=== PATIENT | female | born 1950 | race Caucasian/White ===

== ENCOUNTER 2018-11-06 11:31 | Inpatient (IN) | payer MEDICARE ==
[~2018-11-06] VITALS: Ht 160 cm; Wt 119.4 kg
[2018-11-06] MEDS: IPRATROPIUM BROMIDE 0.02% 2.5 ML NEB NEB SCH ×2 (01:45→19:00)
[2018-11-06] MEDS: ALBUTEROL SULF 0.083% NEB SOLN 3 ML NEB NEB SCH ×2 (01:45→19:00)
--- OUTSIDE RECORDS SUMMARY | 2018-11-06 11:33 | XMS REPORT ---
Author Author [facility] Address Unknown Phone Unavailable Care Team Providers Care Skip Hoist Operator Name Role Phone ALEKSANDRA LACKEYPONCHO CHRISTIANSON Unavailable Unavailable BRENDEN WESLEY Unavailable Unavailable Problems This patient has no known problems. Allergies, Adverse Reactions, Alerts This patient has no known allergies or adverse reactions. Medications This patient has no known medications. Results Test Description Test Time Test Comments Text Results Atomic Results Result Comments BASIC METABOLIC PANEL 2018-09-30 06:23:00 SODIUM (BEAKER) (test hebf=589) 139 meq/L 136-145 POTASSIUM (BEAKER) (test btii=704) 4.6 meq/L 3.5-5.1 Specimen slightly hemolyzed CHLORIDE (BEAKER) (test lakv=932) 110 meq/L 98-107 CO2 (BEAKER) (test rroy=861) 20 meq/L 22-29 BLOOD UREA NITROGEN (BEAKER) (test waye=163) 22 mg/dL 7-21 CREATININE (BEAKER) (test zvao=752) 1.06 mg/dL 0.57-1.25 Specimen slightly hemolyzed GLUCOSE RANDOM (BEAKER) (test xczj=745) 101 mg/dL 70-105 CALCIUM (BEAKER) (test wjhj=745) 8.4 mg/dL 8.4-10.2 EGFR (BEAKER) (test mhiu=7207) 52 mL/min/1.73 sq m ESTIMATED GFR IS NOT ACCURATE CREATININE CLEARANCE IN PREDICTING GLOMERULAR FILTRATION RATE. ESTIMATED GFR IS NOT APPLICABLE FOR DIALYSIS PATIENTS. CBC (HEMOGRAM ONLY)2018-09-30 06:00:00* Test Item Value Reference Range Comments WHITE BLOOD CELL COUNT (BEAKER) (test dywm=036) 8.3 K/ L 3.5-10.5 RED BLOOD CELL COUNT (BEAKER) (test fntx=706) 4.33 M/ L 3.93-5.22 HEMOGLOBIN (BEAKER) (test euyf=560) 12.0 GM/DL 11.2-15.7 HEMATOCRIT (BEAKER) (test whju=311) 42.6 % 34.1-44.9 MEAN CORPUSCULAR VOLUME (BEAKER) (test fjte=452) 98.4 fL 79.4-94.8 MEAN CORPUSCULAR HEMOGLOBIN (BEAKER) (test hvuj=816) 27.7 pg 25.6-32.2 MEAN CORPUSCULAR HEMOGLOBIN CONC (BEAKER) (test opyx=516) 28.2 GM/DL 32.2-35.5 RED CELL DISTRIBUTION WIDTH (BEAKER) (test soud=004) 17.5 % 11.7-14.4 PLATELET COUNT (BEAKER) (test evna=225) 157 K/CU MM 150-450 MEAN PLATELET VOLUME (BEAKER) (test wnvm=514) 10.7 fL 9.4-12.3 NUCLEATED RED BLOOD CELLS (BEAKER) (test wkck=345) 0 /100 WBC 0-0 [id number] 10:51:00* Test Item Value Reference Range Comments ACTIVATED CLOTTING TIME (BEAKER) (test xwqd=093) 274 sec TESTED AT [address] [address] [id number] 09:59:00* Test Item Value Reference Range Comments ACTIVATED CLOTTING TIME (BEAKER) (test igjf=333) 356 sec TESTED AT [address] [address] BASIC METABOLIC [id number] 13:40:00* Test Item Value Reference Range Comments SODIUM (BEAKER) (test wnis=627) 146 meq/L 136-145 POTASSIUM (BEAKER) (test cakn=686) 4.3 meq/L 3.5-5.1 CHLORIDE (BEAKER) (test zkxb=968) 109 meq/L 98-107 CO2 (BEAKER) (test dxyp=710) 26 meq/L 22-29 BLOOD UREA NITROGEN (BEAKER) (test vajv=815) 23 mg/dL 7-21 CREATININE (BEAKER) (test hwjw=876) 1.16 mg/dL 0.57-1.25 GLUCOSE RANDOM (BEAKER) (test hstv=896) 86 mg/dL 70-105 CALCIUM (BEAKER) (test wyau=910) 9.8 mg/dL 8.4-10.2 EGFR (BEAKER) (test qysn=5172) 47 mL/min/1.73 sq m ESTIMATED GFR IS NOT ACCURATE CREATININE CLEARANCE IN PREDICTING GLOMERULAR FILTRATION RATE. ESTIMATED GFR IS NOT APPLICABLE FOR DIALYSIS PATIENTS. CBC W/PLT COUNT & AUTO [id number] 13:29:00* Test Item Value Reference Range Comments WHITE BLOOD CELL COUNT (BEAKER) (test gcqb=913) 11.9 K/ L 3.5-10.5 RED BLOOD CELL COUNT (BEAKER) (test vbia=043) 4.87 M/ L 3.93-5.22 HEMOGLOBIN (BEAKER) (test mvgt=599) 13.6 GM/DL 11.2-15.7 HEMATOCRIT (BEAKER) (test ldcc=966) 44.0 % 34.1-44.9 MEAN CORPUSCULAR VOLUME (BEAKER) (test pddf=445) 90.3 fL 79.4-94.8 MEAN CORPUSCULAR HEMOGLOBIN (BEAKER) (test xfaq=635) 27.9 pg 25.6-32.2 MEAN CORPUSCULAR HEMOGLOBIN CONC (BEAKER) (test ksqk=259) 30.9 GM/DL 32.2-35.5 RED CELL DISTRIBUTION WIDTH (BEAKER) (test ujpd=611) 17.2 % 11.7-14.4 PLATELET COUNT (BEAKER) (test kyzr=840) 252 K/CU MM 150-450 MEAN PLATELET VOLUME (BEAKER) (test aipl=245) 11.0 fL 9.4-12.3 NUCLEATED RED BLOOD CELLS (BEAKER) (test izwd=876) 0 /100 WBC 0-0 NEUTROPHILS RELATIVE PERCENT (BEAKER) (test wmes=948) 69 % LYMPHOCYTES RELATIVE PERCENT (BEAKER) (test xpnp=735) 23 % MONOCYTES RELATIVE PERCENT (BEAKER) (test riwp=790) 4 % EOSINOPHILS RELATIVE PERCENT (BEAKER) (test onlm=236) 3 % BASOPHILS RELATIVE PERCENT (BEAKER) (test irbe=554) 1 % NEUTROPHILS ABSOLUTE COUNT (BEAKER) (test vuam=028) 8.17 K/ L 1.56-6.13 LYMPHOCYTES ABSOLUTE COUNT (BEAKER) (test hgsb=845) 2.70 K/ L 1.18-3.74 MONOCYTES ABSOLUTE COUNT (BEAKER) (test alpe=943) 0.48 K/ L 0.24-0.36 EOSINOPHILS ABSOLUTE COUNT (BEAKER) (test ryhq=214) 0.38 K/ L 0.04-0.36 BASOPHILS ABSOLUTE COUNT (BEAKER) (test qzuw=975) 0.08 K/ L 0.01-0.08 IMMATURE GRANULOCYTES-RELATIVE PERCENT (BEAKER) (test quwh=3051) 0 % 0-1 B-TYPE NATRIURETIC FACTOR (BNP)2018-08-01 13:14:00* Test Item Value Reference Range Comments B-TYPE NATRIURETIC PEPTIDE (BEAKER) (test wlbl=457) 61 pg/mL 0-100 LIPID [id number] 13:14:00* Test Item Value Reference Range Comments TRIGLYCERIDES (BEAKER) (test fjln=451) 132 mg/dL CHOLESTEROL (BEAKER) (test umdf=066) 237 mg/dL HDL CHOLESTEROL (BEAKER) (test yunp=607) 36 mg/dL LDL CHOLESTEROL CALCULATED (BEAKER) (test cigx=183) 175 mg/dL Triglyceride Reference Range: Low Risk <150 Borderline 150-199 High Risk 200-499 Very High Risk >=500Cholesterol Reference Range: Low Risk <200 Borderline 200-239 High Risk >240HDL Cholesterol Reference Range: Low Risk >=60 High Risk <40LDL Cholesterol Reference Range: Optimal <100 Near Optimal 100-129 Borderline 130-159 High 160-189 Very High >=190 COMPREHENSIVE METABOLIC [id number] 13:14:00* Test Item Value Reference Range Comments TOTAL PROTEIN (BEAKER) (test wbkz=061) 7.0 gm/dL 6.0-8.3 ALBUMIN (BEAKER) (test zakt=4113) 4.1 g/dL 3.5-5.0 ALKALINE PHOSPHATASE (BEAKER) (test gfay=682) 84 U/L 40-150 BILIRUBIN TOTAL (BEAKER) (test iqbw=827) 0.2 mg/dL 0.2-1.2 SODIUM (BEAKER) (test hhjg=710) 143 meq/L 136-145 POTASSIUM (BEAKER) (test apei=388) 4.5 meq/L 3.5-5.1 CHLORIDE (BEAKER) (test objo=219) 107 meq/L 98-107 CO2 (BEAKER) (test hsku=913) 28 meq/L 22-29 BLOOD UREA NITROGEN (BEAKER) (test yafq=703) 22 mg/dL 7-21 CREATININE (BEAKER) (test lplb=691) 1.19 mg/dL 0.57-1.25 GLUCOSE RANDOM (BEAKER) (test fpzz=813) 81 mg/dL 70-105 CALCIUM (BEAKER) (test ooor=509) 9.4 mg/dL 8.4-10.2 AST (SGOT) (BEAKER) (test ggxf=871) 17 U/L 5-34 ALT (SGPT) (BEAKER) (test cgvp=185) 11 U/L 6-55 EGFR (BEAKER) (test vqki=7166) 45 mL/min/1.73 sq m ESTIMATED GFR IS NOT ACCURATE CREATININE CLEARANCE IN PREDICTING GLOMERULAR FILTRATION RATE. ESTIMATED GFR IS NOT APPLICABLE FOR DIALYSIS PATIENTS. CBC W/PLT COUNT & AUTO [id number] 12:34:00* Test Item Value Reference Range Comments WHITE BLOOD CELL COUNT (BEAKER) (test fkpv=767) 9.9 K/ L 3.5-10.5 RED BLOOD CELL COUNT (BEAKER) (test casf=028) 5.06 M/ L 3.93-5.22 HEMOGLOBIN (BEAKER) (test hwmh=384) 13.7 GM/DL 11.2-15.7 HEMATOCRIT (BEAKER) (test fuuw=523) 45.3 % 34.1-44.9 MEAN CORPUSCULAR VOLUME (BEAKER) (test yufs=274) 89.5 fL 79.4-94.8 MEAN CORPUSCULAR HEMOGLOBIN (BEAKER) (test ljpo=642) 27.1 pg 25.6-32.2 MEAN CORPUSCULAR HEMOGLOBIN CONC (BEAKER) (test enjk=128) 30.2 GM/DL 32.2-35.5 RED CELL DISTRIBUTION WIDTH (BEAKER) (test jfqq=028) 16.8 % 11.7-14.4 PLATELET COUNT (BEAKER) (test axhq=267) 232 K/CU MM 150-450 MEAN PLATELET VOLUME (BEAKER) (test ekrm=188) 10.4 fL 9.4-12.3 NUCLEATED RED BLOOD CELLS (BEAKER) (test ijgj=263) 0 /100 WBC 0-0 NEUTROPHILS RELATIVE PERCENT (BEAKER) (test wtmo=192) 64 % LYMPHOCYTES RELATIVE PERCENT (BEAKER) (test dksh=071) 27 % MONOCYTES RELATIVE PERCENT (BEAKER) (test lawu=438) 5 % EOSINOPHILS RELATIVE PERCENT (BEAKER) (test hujk=204) 3 % BASOPHILS RELATIVE PERCENT (BEAKER) (test obvd=388) 1 % NEUTROPHILS ABSOLUTE COUNT (BEAKER) (test gizz=722) 6.34 K/ L 1.56-6.13 LYMPHOCYTES ABSOLUTE COUNT (BEAKER) (test xivf=047) 2.64 K/ L 1.18-3.74 MONOCYTES ABSOLUTE COUNT (BEAKER) (test qzmu=113) 0.46 K/ L 0.24-0.36 EOSINOPHILS ABSOLUTE COUNT (BEAKER) (test yqlz=764) 0.30 K/ L 0.04-0.36 BASOPHILS ABSOLUTE COUNT (BEAKER) (test lhbu=127) 0.08 K/ L 0.01-0.08 IMMATURE GRANULOCYTES-RELATIVE PERCENT (BEAKER) (test aqbx=2297) 0 % 0-1 FL, ESOPH, SWALLOW FUNCTION, WITH CINE OR [id number] 12:04:00Reason for Exam:->[id number] REPORT INDICATION: Dysphagia. TECHNIQUE: The patient was administered various consistencies of liquid and food mixed with barium. Swallowing was observed with the speech pathologist present. Fluoroscopy time 1.5 minutes.Fluoroscopic images 1 FINDINGS / IMPRESSION:There was laryngeal penetration on thin swallow. No aspiration demonstrated. Please see report written by the speech pathologist for detailed report and recommendations. Signed: Laura Gerardo MDReport Verified Date/Time: 07/26/2018 12:04:21 Reading Location: [facility] C013Y CT Body Reading Room
--- OUTSIDE RECORDS SUMMARY | 2018-11-06 11:33 | XMS REPORT | Clinical Summary ---
Author Author STU Minetta Brook Organization [facility] [employer] [facility] Address Unknown Phone Unavailable Care Team Providers Care Product Marketing Intern Name Role Phone Pcp, No PCP Unavailable Allergies Comments Active Allergy Reactions Severity Noted Date Pulls off skin Adhesive Tape 09/29/2018 Cat and Fur; pt got asthma Cat's Claw (Uncaria 09/28/2018 [place]) Coughing and wheezing Pollen Extracts 09/28/2018 Medications End Date Status Medication Sig Dispensed Refills Start Date Active losartan (COZAAR) 50 MG Take 50 mg by 0 tablet mouth 2 (two) times daily. Active atorvastatin (LIPITOR) 80 Take 80 mg by 0 MG tablet mouth daily. Active furosemide (LASIX) 40 MG Take 40 mg by 0 tablet mouth 2 (two) times daily 40 mg in AM; 40mg at NOON. Active aspirin 81 MG chewable Take 81 mg by 0 tablet mouth daily. Active nitroglycerin Place 1 spray 0 (NITROLINGUAL) 0.4 under the mg/dose spray tongue every 5 (five) minutes as needed. Active nebivolol (BYSTOLIC) 10 Take 20 mg by 0 MG tablet mouth daily. Active ranolazine (RANEXA) 500 Take 500 mg 0 MG 12 hr tablet by mouth 2 (two) times daily. Active budesonide-formoterol Inhale 2 0 (SYMBICORT) 160-4.5 puffs by mcg/actuation inhaler mouth via inhaler 2 (two) times daily. Active tiotropium bromide Inhale by 0 (SPIRIVA RESPIMAT) 2.5 mouth via mcg/actuation Mist inhaler daily. Active montelukast (SINGULAIR) Take 10 mg by 0 10 mg tablet mouth daily. Active ipratropium (ATROVENT) Take 500 mcg 0 0.02 % nebulizer solution by nebulization 4 (four) times daily. Active ticagrelor (BRILINTA) 90 Take 1 tablet 60 tablet 3 mg Tab tablet (90 mg total) 9 by mouth 2 (two) times daily. 09/30/2019 Active amLODIPine (NORVASC) 2.5 Take 1 tablet 90 tablet 2 201 MG tablet (2.5 mg 9 total) by mouth daily. 09/30/2018 Discontinued prasugrel (EFFIENT) 10 mg Take 10 mg by 0 Tab tabletIndications: mouth daily. PVD (peripheral vascular disease) with claudication (HCC) Active Problems Problem Noted Date Coronary atherosclerosis of [place] coronary artery 09/29/2018 Abnormal cardiac function test 09/29/2018 Angina pectoris, unstable 07/22/2015 Wound infection 04/18/2014 Wound of right leg, sequela 04/17/2014 Peripheral vascular disease 11/22/2013 Peripheral artery disease 11/08/2013 Coronary arteriosclerosis 05/05/2013 CAD (coronary artery disease) 04/19/2013 Encounters Care Team Description Date Type Specialty Chandu Piedra MD CORONARY ANGIOS & STENT 09/29/2018 Surgery Chandu Piedra MD 09/29/2018 Hospital Cardiology - Encounter 09/30/2018 Chandu Piedra MD Hypoventilation, idiopathic (Primary Dx); Atherosclerosis of [place] coronary artery with angina pectoris, unspecified whether [place] or transplanted heart (HCC) 09/12/2018 Orders Only Lab Onesimo Oconnell MD Atherosclerosis of [place] coronary artery with angina pectoris, unspecified whether [place] or transplanted heart (HCC) (Primary Dx); Hypoventilation, idiopathic; 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) 08/01/2018 Orders Only Lab Mika Bailey MD Dysphagia, unspecified type 07/26/2018 Hospital Radiology Encounter Mika Bailey MD Dysphagia, unspecified type (Primary Dx) 07/05/2018 Outside Orders Central Scheduling after 11/05/2017 Family History Medical History Relation Name Comments Hypertension Brother Hypertension Brother Heart disease Father Stroke Mother Hypertension Sister Relation Name Status Comments Brother Alive Brother Alive Father Mother Sister Alive Social History Date Tobacco Use Types Packs/Day Years Used Quit: 03/18/2013 Former Smoker 1 45 Smokeless Tobacco: Never Used Alcohol Use Drinks/Week oz/Week Comments No Sex Assigned at Date Recorded Not on file Industry Job Start Date Occupation Not on file Not on file Not on file Travel End Travel History Travel Start No recent travel history available. Last Filed Vital Signs Time Taken Vital Sign Reading 09/30/2018 7:00 AM CDT Blood Pressure 135/65 09/30/2018 9:11 AM CDT Pulse 64 09/30/2018 7:00 AM CDT Temperature 36.1 C (96.9 F) 09/30/2018 9:11 AM CDT Respiratory Rate 20 09/30/2018 9:11 AM CDT Oxygen Saturation 97% - Inhaled Oxygen - Concentration 09/30/2018 7:00 AM CDT Weight 122.1 kg (269 lb 1.6 oz) 09/29/2018 5:35 AM CDT Height 160 cm (5' 3") 09/30/2018 7:00 AM CDT Body Mass Index 47.67 Plan of Treatment Not on file Implants Device Identifier Shelf Expiration Date Model / Serial / Lot Implanted Type Area Manufactur er 05/18/2019 [id number] / / [id number] Device Clsr Angio-Seal Vip 6fr Cardiovasc Right: Groin [facility] [place] [id number] - [id number] ular MED:CARDIA Implanted: Qty: 1 on 09/29/2018 by Chandu Martinez MD 05/18/2017 [id number] / / [id number] Graft,Propaten Stretch Thin Wall Graft/Patc Right: Leg W L GORE Removable Ring 6mm [id number] - h [id number] Implanted: Qty: 1 on 01/03/2014 by Berto Wilkerson MD 04/24/2020 [id number] / / [id number] Synergy Otw Coronary Stent Stents-Cor N/A: Heart [place] Implanted: Qty: 1 on 09/29/2018 by Chandu Goodson MD Procedures Comments Procedure Name Priority Date/Time Associated Diagnosis VASCULAR DIAGRAM -SCAN 10/27/2018 1:54 PM CDT RHYTHM STRIP - SCAN 10/17/2018 1:52 PM CDT RHYTHM STRIP - SCAN 10/04/2018 7:30 AM CDT REPORT OF PROCEDURE - 10/04/2018 ENDOSCOPY SCAN 7:30 AM CDT CARDIAC CATH REPORT - 10/04/2018 SCAN 7:30 AM CDT VASCULAR DIAGRAM -SCAN 10/04/2018 7:30 AM CDT CBC (HEMOGRAM ONLY) Routine 09/30/2018 5:31 AM CDT BASIC METABOLIC PANEL (7) Routine 09/30/2018 5:31 AM CDT POCT-ACT Routine 09/29/2018 10:43 AM CDT POCT-ACT Routine 09/29/2018 9:48 AM CDT CORONARY ANGIOS & STENT 09/29/2018 Disease of cardiovascular 7:30 AM CDT system Case Notes (1) CASE POP6 CBC W/PLT COUNT & AUTO Routine 09/12/2018 Hypoventilation, DIFFERENTIAL 1:06 PM CRYPTOLOGIST idiopathic Atherosclerosis of [place] coronary artery with angina pectoris, unspecified whether [place] or transplanted heart (HCC) CBC W/PLT COUNT & AUTO Routine 09/12/2018 Hypoventilation, DIFFERENTIAL 1:06 PM CRYPTOLOGIST idiopathic Atherosclerosis of [place] coronary artery with angina pectoris, unspecified whether [place] or transplanted heart (HCC) BASIC METABOLIC PANEL (7) Routine 09/12/2018 Hypoventilation, 1:06 PM CRYPTOLOGIST idiopathic Atherosclerosis of [place] coronary artery with angina pectoris, unspecified whether [place] or transplanted heart (HCC) CBC W/PLT COUNT & AUTO Routine 08/01/2018 Atherosclerosis of [place] DIFFERENTIAL 11:51 AM CRYPTOLOGIST coronary artery with angina pectoris, unspecified whether [place] or transplanted heart (HCC) Hypoventilation, idiopathic 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) B-TYPE NATRIURETIC FACTOR Routine 08/01/2018 Atherosclerosis of [place] (BNP) 11:51 AM CRYPTOLOGIST coronary artery with angina pectoris, unspecified whether [place] or transplanted heart (HCC) Hypoventilation, idiopathic 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) CBC W/PLT COUNT & AUTO Routine 08/01/2018 Atherosclerosis of [place] DIFFERENTIAL 11:51 AM CRYPTOLOGIST coronary artery with angina pectoris, unspecified whether [place] or transplanted heart (HCC) Hypoventilation, idiopathic 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) COMPREHENSIVE METABOLIC Routine 08/01/2018 Atherosclerosis of [place] PANEL 11:51 AM CRYPTOLOGIST coronary artery with angina pectoris, unspecified whether [place] or transplanted heart (HCC) Hypoventilation, idiopathic 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 Narrative Performed At * RHYTHM STRIP - SCAN (10/17/2018 1:52 PM CDT) Only the most recent of 2 results within the time period is included. Narrative Performed At * EKG-SCANNED (10/04/2018 7:30 AM CDT) Narrative Performed At * CARDIAC CATH REPORT - SCAN (10/04/2018 7:30 AM CDT) Narrative Performed At * CBC (Hemogram only) (09/30/2018 5:31 AM CDT) WBC 8.3 3.5 - 10.5 K/L [facility] RBC 4.33 3.93 - 5.22 M/L [facility] Hemoglobin 12.0 11.2 - 15.7 GM/DL [facility] Hematocrit 42.6 34.1 - 44.9 % [facility] MCV 98.4 (H) 79.4 - 94.8 fL [facility] MCH 27.7 25.6 - 32.2 pg [facility] MCHC 28.2 (L) 32.2 - 35.5 GM/DL [facility] RDW 17.5 (H) 11.7 - 14.4 % [facility] Platelets 157 150 - 450 K/CU MM [facility] MPV 10.7 9.4 - 12.3 fL [facility] nRBC 0 0 - 0 /100 WBC [facility] Specimen Blood Performing Organization Address City/[facility]/Zipcode Phone Number [facility] [address] [place] [address] [facility] * Basic metabolic panel (09/30/2018 5:31 AM CDT) Only the most recent of 2 results within the time period is included. Sodium 139 136 - 145 meq/L [facility] Potassium 4.6Comment: Specimen slightly 3.5 - 5.1 meq/L [facility] Chloride 110 (H) 98 - 107 meq/L [facility] CO2 20 (L) 22 - 29 meq/L [facility] BUN 22 (H) 7 - 21 mg/dL [facility] Creatinine 1.06Comment: Specimen slightly 0.57 - 1.25 mg/dL [facility] Glucose 101 70 - 105 mg/dL [facility] Calcium 8.4 8.4 - 10.2 mg/dL [facility] EGFR 52Comment: ESTIMATED GFR IS mL/min/1.[address] [facility] NOT ACCURATE CREATININE [facility] CLEARANCE IN PREDICTING GLOMERULAR FILTRATION RATE. ESTIMATED GFR IS NOT APPLICABLE FOR DIALYSIS PATIENTS. Specimen Blood Performing Organization Address City/[facility]/Zipcode Phone Number [facility] [address] [place] [address] [facility] * POC ACTIVATED CLOTTING TIME (09/29/2018 10:43 AM CDT) Only the most recent of 2 results within the time period is included. Activated Clotting Time 274Comment: TESTED AT [facility] sec [address] [address] [facility] Specimen Blood Performing Organization Address City/State/Zipcode Phone Number [address] [address] [facility] * CBC with platelet count + automated diff (09/12/2018 1:06 PM CRYPTOLOGIST) Only the most recent of 2 results within the time period is included. WBC 11.9 (H) 3.5 - 10.5 K/L [facility] RBC 4.87 3.93 - 5.22 M/L [facility] Hemoglobin 13.6 11.2 - 15.7 GM/DL [facility] Hematocrit 44.0 34.1 - 44.9 % [facility] MCV 90.3 79.4 - 94.8 fL [facility] MCH 27.9 25.6 - 32.2 pg [facility] MCHC 30.9 (L) 32.2 - 35.5 GM/DL [facility] RDW 17.2 (H) 11.7 - 14.4 % [facility] Platelets 252 150 - 450 K/CU MM [facility] MPV 11.0 9.4 - 12.3 fL [facility] nRBC 0 0 - 0 /100 WBC [facility] % Neutros 69 % [facility] % Lymphs 23 % [facility] % Monos 4 % [facility] % Eos 3 % [facility] % Baso 1 % [facility] # Neutros 8.17 (H) 1.56 - 6.13 K/L [facility] # Lymphs 2.70 1.18 - 3.74 K/L [facility] # Monos 0.48 (H) 0.24 - 0.36 K/L [facility] # Eos 0.38 (H) 0.04 - 0.36 K/L [facility] # Baso 0.08 0.01 - 0.08 K/L [facility] Immature 0 0 - 1 % [facility] Granulocytes-Relative [facility] Specimen Blood Performing Organization Address City/[facility] Phone Number [address] * B-type Natriuretic Factor (BNP) (08/01/2018 11:51 AM CRYPTOLOGIST) BNP 61 0 - 100 pg/mL [facility] Specimen Blood Performing Organization Address City/[facility] Phone Number [address] * Lipid panel (08/01/2018 11:51 AM CRYPTOLOGIST) Triglycerides 132 mg/dL [facility] Cholesterol 237 mg/dL [facility] HDL 36 mg/dL [facility] LDL Calculated 175 mg/dL [facility] Specimen Blood Narrative Performed At Triglyceride Reference Range: [facility] Low Risk <150 [facility] [id number] High Risk 200-499 Very High Risk>=500 Cholesterol Reference Range: Low Risk <200 [id number] High Risk>240 HDL Cholesterol Reference Range: Low Risk >=60 High Risk <40 LDL Cholesterol Reference Range: Optimal<100 Near [id number] Very High >=190 Performing Organization Address City/[facility] [place] [address] [facility] * Comprehensive metabolic panel (08/01/2018 11:51 AM CRYPTOLOGIST) Protein, Total 7.0 6.0 - 8.3 gm/dL [facility] Albumin 4.1 3.5 - 5.0 g/dL [facility] Alkaline Phosphatase 84 40 - 150 U/L [facility] Total Bilirubin 0.2 0.2 - 1.2 mg/dL [facility] Sodium 143 136 - 145 meq/L [facility] Potassium 4.5 3.5 - 5.1 meq/L [facility] Chloride 107 98 - 107 meq/L [facility] CO2 28 22 - 29 meq/L [facility] BUN 22 (H) 7 - 21 mg/dL [facility] Creatinine 1.19 0.57 - 1.25 mg/dL [facility] Glucose 81 70 - 105 mg/dL [facility] Calcium 9.4 8.4 - 10.2 mg/dL [facility] AST 17 5 - 34 U/L [facility] ALT 11 6 - 55 U/L [facility] EGFR 45Comment: ESTIMATED GFR IS mL/min/1.[address] [facility] NOT ACCURATE CREATININE [facility] CLEARANCE IN PREDICTING GLOMERULAR FILTRATION RATE. ESTIMATED GFR IS NOT APPLICABLE FOR DIALYSIS PATIENTS. Specimen Blood Performing Organization Address City/State/Zipcode Phone Number [facility] [address], [place] [id number] [facility] * [place] esoph swallow funct with cine video (07/26/2018 9:48 AM CRYPTOLOGIST) Specimen Narrative Performed At [facility] INDICATION: Dysphagia. TECHNIQUE: The patient was administered various consistencies of liquid and food mixed with barium. Swallowing was observed with the speech pathologist present. Fluoroscopy time 1.5 minutes. Fluoroscopic images 1 FINDINGS / IMPRESSION: There was laryngeal penetration on thin swallow. No aspiration demonstrated. Please see report written by the speech pathologist for detailed report and recommendations. Signed: Laura Gerardo MD Report Verified Date/Time:07/26/2018 12:04:21 [place] Location: [facility] C013Y CT Body Reading Room Procedure Note Interface, External Ris In - 07/26/2018 12:06 PM CRYPTOLOGIST FINAL REPORT INDICATION: Dysphagia. TECHNIQUE: The patient was administered various consistencies of liquid and food mixed with barium. Swallowing was observed with the speech pathologist present. Fluoroscopy time 1.5 minutes. Fluoroscopic images 1 FINDINGS / IMPRESSION: There was laryngeal penetration on thin swallow. No aspiration demonstrated. Please see report written by the speech pathologist for detailed report and recommendations. Signed: aLura Gerardo MD Report Verified Date/Time: 07/26/2018 12:04:21 [place] Location: [facility] C013Y CT Body Reading Room Performing Organization Address City/State/Zipcode Phone Number RIS after 11/05/2017 Insurance Payer Benefit Subscriber ID Type Phone Address Plan / Group [facility] xxxxxxxxx MEDICARE MGD CARE MEDICARE HMO Advance Directives Patient has advance care planning documents, and code status on file. For more i nformation, please contact: [address] [address] Date Inactivated Comments Code Status Date Activated 09/30/2018 12:06 PM Full Code 09/29/2018 5:46 AM This code status was determined by: Patient 08/13/2015 11:21 PM Full Code 08/13/2015 7:50 AM This code status was determined by: Patient 07/22/2015 6:30 PM Full Code 07/22/2015 6:43 AM This code status was determined by: Patient 01/07/2014 4:22 PM All possible means of support, including: cardiac massage, mechanical ventilation, and defibrillation will be used to support life. Code ONE 01/03/2014 11:11 AM 01/03/2014 11:11 AM All possible means of support including;cardiac massage, mechanical ventilation, and defibrillation will be used to support life. Code ONE 01/03/2014 5:57 AM
[2018-11-06] MEDS ORDERED: METHYLPREDNISOLONE SOD SUCC 125 MG/2ML VIAL IV STA (11:41)
--- NOTE | 2018-11-06 11:44 | NUR ---
RT NOTIFIED FOR STAT NEB TREATMENT.
[2018-11-06] MEDS ORDERED: ASPIRIN 81 MG CHEW TAB PO ONE (11:45)
[2018-11-06] MEDS ORDERED: IPRATROPIUM BROMIDE 0.02% 2.5 ML NEB NEB ONE (11:45)
[2018-11-06] MEDS ORDERED: LEVALBUTEROL HCL SOLN NEBU 1.25 MG/3 ML NEB INH ONE (11:45)
[2018-11-06] MEDS ORDERED: MORPHINE SULFATE INJ 4 MG/ML INJ 1ML IV NR (11:45)
[2018-11-06 12:04] LABS: BASOPHILS # (AUTO) 0.1 (0.0-0.1); BASOPHILS % 0.4 % (0.0-1.0); EOSINOPHILS # (AUTO) 0.3 (0.0-0.4); EOSINOPHILS % 1.3 % (0.0-6.0); HEMATOCRIT 38.1 % (34.2-44.1); HEMOGLOBIN 11.6 g/dL (12.0-16.0); LYMPHOCYTES # (AUTO) 1.6 (1.0-3.2); LYMPHOCYTES % 8.5 % (18.0-39.1); MEAN CORPUSCULAR HEMOGLOBIN 27.8 pg (28-32); MEAN CORPUSCULAR HGB CONC 30.4 g/dL (31-35); MEAN CORPUSCULAR VOLUME 91.4 fL (81-99); MONOCYTES # (AUTO) 1.5 (0.2-0.8); MONOCYTES % 7.9 % (4.4-11.3); NEUTROPHILS # (AUTO) 15.5 (2.1-6.9); NEUTROPHILS % 81.4 % (38.7-80.0); PLATELET COUNT 288 x10e3/uL (140-360); RED BLOOD COUNT 4.17 x10e6/uL (3.6-5.1)
[2018-11-06 12:17] LABS: INR 1.1; PROTHROMBIN TIME 14.7 seconds (11.9-14.5)
[2018-11-06 12:18] LABS: PARTIAL THROMBOPLASTIN TIME 45.3 seconds (23.8-35.5)
[2018-11-06 12:25] LABS: ALBUMIN 3.2 g/dL (3.5-5.0); ALBUMIN/GLOBULIN RATIO 0.7 (0.8-2.0); ANION GAP 16.7 mmol/L (8-16); CALCIUM 9.7 mg/dL (8.4-10.2); CREATININE, SERUM 1.48 mg/dL (0.57-1.11); MAGNESIUM 2.6 MG/DL (1.3-2.1); POTASSIUM 3.7 mmol/L (3.5-5.1)
[2018-11-06] MEDS ORDERED: IPRATROPIUM BROMIDE 0.02% 2.5 ML NEB ONE (12:29)
[2018-11-06] MEDS ORDERED: LEVALBUTEROL HCL SOLN NEBU 1.25 MG/3 ML NEB ONE (12:29)
[2018-11-06 12:32] LABS: CREATINE KINASE MB 0.4 ng/mL (0-5.0)
--- NOTE | 2018-11-06 13:02 | Diagnostic Imaging Report ---
EXAMINATION: CHEST SINGLE (PORTABLE) INDICATION: COPD, cough, shortness of breath, chest pain. COMPARISON: None FINDINGS: TUBES and LINES: None. LUNGS: Low lung volumes. There are patchy opacities in the bilateral lower lung zones. PLEURA: No pleural effusion or pneumothorax. HEART AND MEDIASTINUM: The cardiomediastinal silhouette is mildly enlarged, which may reflect portable technique. BONES AND SOFT TISSUES: No acute osseous abnormality. UPPER ABDOMEN: No free air under the diaphragm. IMPRESSION: Patchy opacities in the lower lungs, which may represent pneumonia or atelectasis in the appropriate clinical setting. Suggest follow-up chest radiograph in 6-8 weeks to assess for resolution. Signed by: Dr. Sebastian Arellano MD on 11/06/2018 12:59 PM
--- OUTSIDE RECORDS SUMMARY | 2018-11-06 13:59 | XMS REPORT | Clinical Summary ---
Author Author STU Appcelerator Organization [facility] Girl Meets Dress [facility] Address Unknown Phone Unavailable Care Team Providers Care Intake Assessor Name Role Phone Pcp, No PCP Unavailable [...] Problems Problem Noted Date Coronary atherosclerosis of [place] coronary artery 09/29/2018 Abnormal cardiac function test [...] MD Hypoventilation, idiopathic (Primary Dx); Atherosclerosis of [place] coronary artery with angina pectoris, unspecified whether [place] or transplanted heart (HCC) 09/12/2018 Orders Only Lab Onesimo Oconnell MD Atherosclerosis of [place] coronary artery with angina pectoris, unspecified whether [place] or transplanted heart (HCC) (Primary Dx); Hypoventilation, [...] Lot Implanted Type Area Manufactur er 05/18/2019 [id number] / / [id number] Device Clsr Angio-Seal Vip 6fr Cardiovasc Right: Groin ST FLORENTINO [id number] - [id number] ular MED:CARDIA Implanted: Qty: 1 on 09/29/2018 by Chandu Martinez MD 05/18/2017 [id number] / / [id number] Graft,Propaten Stretch Thin Wall Graft/Patc Right: Leg W L GORE Removable Ring 6mm [id number] Implanted: Qty: 1 on 01/03/2014 by Berto Wilkerson MD 04/24/2020 [id number] / / [id number] Synergy Otw Coronary Stent Stents-Cor N/A: Heart [...] AUTO Routine 09/12/2018 Hypoventilation, DIFFERENTIAL 1:06 PM FOOD SERVICE SALES REPRESENTATIVES idiopathic Atherosclerosis of [place] coronary artery with angina pectoris, unspecified whether [place] or transplanted heart (HCC) CBC W/PLT COUNT & AUTO Routine 09/12/2018 Hypoventilation, DIFFERENTIAL 1:06 PM [employer] SERVICE SALES REPRESENTATIVES idiopathic Atherosclerosis of [place] coronary artery with angina pectoris, unspecified whether [place] or transplanted heart (HCC) BASIC METABOLIC PANEL (7) Routine 09/12/2018 Hypoventilation, 1:06 PM [employer] SERVICE SALES REPRESENTATIVES idiopathic Atherosclerosis of [place] coronary artery with angina pectoris, unspecified whether [place] or transplanted heart (HCC) CBC W/PLT COUNT & AUTO Routine 08/01/2018 Atherosclerosis of [place] DIFFERENTIAL 11:51 AM FOOD SERVICE SALES REPRESENTATIVES coronary artery with angina pectoris, unspecified whether [place] or transplanted heart (HCC) Hypoventilation, idiopathic 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) B-TYPE NATRIURETIC FACTOR Routine 08/01/2018 Atherosclerosis of [place] (BNP) 11:51 AM [employer] SERVICE SALES REPRESENTATIVES coronary artery with angina pectoris, unspecified whether [place] or transplanted heart (HCC) Hypoventilation, idiopathic 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) CBC W/PLT COUNT & AUTO Routine 08/01/2018 Atherosclerosis of [place] DIFFERENTIAL 11:51 AM FO[employer] SERVICE SALES REPRESENTATIVES coronary artery with angina pectoris, unspecified whether [place] or transplanted heart (HCC) Hypoventilation, idiopathic 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) COMPREHENSIVE METABOLIC Routine 08/01/2018 Atherosclerosis of [place] PANEL 11:51 AM FO[employer] SERVICE SALES REPRESENTATIVES coronary artery with angina pectoris, unspecified whether [place] or transplanted heart (HCC) Hypoventilation, idiopathic 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) LIPID PANEL Routine 08/01/2018 Atherosclerosis of [place] 11:51 AM FO[employer] SERVICE SALES REPRESENTATIVES coronary artery with angina pectoris, unspecified whether [place] or transplanted heart (HCC) Hypoventilation, idiopathic 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) XR ESOPH SWALLOW FUNCTION Routine 07/26/2018 Dysphagia, unspecified W/CINE VIDEO 9:48 AM [employer] SERVICE SALES REPRESENTATIVES type after 11/05/2017 Results * VASCULAR DIAGRAM [...] CDT) WBC 8.3 3.5 - 10.5 K/L [facility] RBC 4.33 3.93 - 5.22 M/L [facility] Hemoglobin 12.0 11.2 - 15.7 GM/DL [facility] Hematocrit 42.6 34.1 - 44.9 % [facility] MCV 98.4 (H) 79.4 - 94.8 fL [facility] MCH 27.7 25.6 - 32.2 pg [facility] MCHC 28.2 (L) 32.2 - 35.5 GM/DL [facility] RDW 17.5 (H) 11.7 - 14.4 % [facility] Platelets 157 150 - 450 K/CU MM [facility] MPV 10.7 9.4 - 12.3 fL [facility] nRBC 0 0 - 0 /100 WBC [facility] Specimen Blood Performing Organization Address City/[facility]/Zipcode Phone Number [facility] [address] [place] [address] [facility] * Basic metabolic panel (09/30/2018 5:31 AM CDT) Only the most recent of 2 results within the time period is included. Sodium 139 136 - 145 meq/L [facility] Potassium 4.6Comment: Specimen slightly 3.5 - 5.1 meq/L [facility] Chloride 110 (H) 98 - 107 meq/L [facility] CO2 20 (L) 22 - 29 meq/L [facility] BUN 22 (H) 7 - 21 mg/dL [facility] Creatinine 1.06Comment: Specimen slightly 0.57 - 1.25 mg/dL [facility] Glucose 101 70 - 105 mg/dL [facility] Calcium 8.4 8.4 - 10.2 mg/dL [facility] EGFR 52Comment: ESTIMATED GFR IS mL/min/1.73 sq m [facility] NOT ACCURATE CREATININE [facility] CLEARANCE IN PREDICTING GLOMERULAR FILTRATION RATE. ESTIMATED GFR IS NOT APPLICABLE FOR DIALYSIS PATIENTS. Specimen Blood Performing Organization Address City/[facility]/Zipcode Phone Number [facility] [address] [place] [address] [facility] * POC ACTIVATED CLOTTING TIME (09/29/2018 10:43 AM CDT) Only the most recent of 2 results within the time period is included. Activated Clotting Time 274Comment: TESTED AT [facility] sec [address] [facility] Specimen Blood Performing Organization Address City/State/Zipcode Phone Number [address] [address] [facility] * CBC with platelet count + automated diff (09/12/2018 1:06 PM [employer] SALES REPRESENTATIVES) Only the most recent of 2 results within the time period is included. WBC 11.9 (H) 3.5 - 10.5 K/L [facility] RBC 4.87 3.93 - 5.22 M/L [facility] Hemoglobin 13.6 11.2 - 15.7 GM/DL [facility] Hematocrit 44.0 34.1 - 44.9 % [facility] MCV 90.3 79.4 - 94.8 fL [facility] MCH 27.9 25.6 - 32.2 pg [facility] MCHC 30.9 (L) 32.2 - 35.5 GM/DL [facility] RDW 17.2 (H) 11.7 - 14.4 % [facility] Platelets 252 150 - 450 K/CU MM [facility] MPV 11.0 9.4 - 12.3 fL [facility] nRBC 0 0 - 0 /100 WBC [facility] % Neutros 69 % [facility] % Lymphs 23 % [facility] % Monos 4 % [facility] % Eos 3 % [facility] % Baso 1 % [facility] # Neutros 8.17 (H) 1.56 - 6.13 K/L [facility] # Lymphs 2.70 1.18 - 3.74 K/L [facility] # Monos 0.48 (H) 0.24 - 0.36 K/L [facility] # Eos 0.38 (H) 0.04 - 0.36 K/L [facility] # Baso 0.08 0.01 - 0.08 K/L [facility] Immature 0 0 - 1 % [facility] Granulocytes-Relative [facility] Specimen Blood Performing Organization Address City/[facility] Phone Number [address] * B-type Natriuretic Factor (BNP) (08/01/2018 11:51 AM FO[employer] SERVICE SALES REPRESENTATIVES) BNP 61 0 - 100 pg/mL [facility] Specimen Blood Performing Organization Address City/[facility] Phone Number [address] * Lipid panel (08/01/2018 11:51 AM [employer] SERVICE SALES REPRESENTATIVES) Triglycerides 132 mg/dL [facility] Cholesterol 237 mg/dL [facility] HDL 36 mg/dL [facility] LDL Calculated 175 mg/dL [facility] Specimen Blood Narrative Performed At Triglyceride Reference Range: [facility] Low Risk <[address] [facility] [id number] High Risk 200-499 Very High Risk>=500 Cholesterol Reference Range: Low Risk <200 [id number] High Risk>240 HDL Cholesterol Reference Range: Low Risk >=60 High Risk <40 LDL Cholesterol Reference Range: Optimal<100 Near [id number] Very High >=190 Performing Organization Address City/[facility] [place] [address] [facility] * Comprehensive metabolic panel (08/01/2018 11:51 AM FO[employer] SERVICE SALES REPRESENTATIVES) Protein, Total 7.0 6.0 - 8.3 gm/dL [facility] Albumin 4.1 3.5 - 5.0 g/dL [facility] Alkaline Phosphatase 84 40 - 150 U/L [facility] Total Bilirubin 0.2 0.2 - 1.2 mg/dL [facility] Sodium 143 136 - 145 meq/L [facility] Potassium 4.5 3.5 - 5.1 meq/L [facility] Chloride 107 98 - 107 meq/L [facility] CO2 28 22 - 29 meq/L [facility] BUN 22 (H) 7 - 21 mg/dL [facility] Creatinine 1.19 0.57 - 1.25 mg/dL [facility] Glucose 81 70 - 105 mg/dL [facility] Calcium 9.4 8.4 - 10.2 mg/dL [facility] AST 17 5 - 34 U/L [facility] ALT 11 6 - 55 U/L [facility] EGFR 45Comment: ESTIMATED GFR IS mL/min/1.73 sq m [facility] NOT ACCURATE CREATININE [facility] CLEARANCE IN PREDICTING GLOMERULAR FILTRATION RATE. ESTIMATED GFR IS NOT APPLICABLE FOR DIALYSIS PATIENTS. Specimen Blood Performing Organization Address City/State/Zipcode Phone Number [facility] [address] [place], [place] [id number] [facility] * [place] esoph swallow funct with cine video (07/26/2018 9:48 AM FO[employer] SERVICE SALES REPRESENTATIVES) Specimen Narrative Performed At FINAL REPORT [facility] INDICATION: Dysphagia. TECHNIQUE: The patient was administered [...] MD Report Verified Date/Time:07/26/2018 12:04:21 Reading Location: [facility] C013Y CT Body Reading Room Procedure Note Interface, External Ris In - 07/26/2018 12:06 PM FO[employer] SERVICE SALES REPRESENTATIVES FINAL REPORT INDICATION: Dysphagia. TECHNIQUE: The patient [...] recommendations. Signed: Laura Gerardo MD Report Verified Date/Time: 07/26/2018 12:04:21 Reading Location: [facility] C013Y CT Body Reading Room Performing Organization Address City/State/Zipcode Phone Number RIS after 11/05/2017 Insurance Payer Benefit Subscriber ID Type Phone Address Plan / Group [facility] xxxxxxxxx MEDICARE MGD CARE MEDICARE HMO Advance Directives Patient has advance care planning documents, and code status on file. For more i nformation, please contact: [address] [address] Date Inactivated Comments Code Status [...]
[2018-11-06] MEDS ORDERED: SODIUM CHLORIDE 0.9% 250ML 250 ML ONE (14:22)
[2018-11-06] MEDS: NICOTINE 21 MG/EA PATCH TOP SCH (14:37)
[2018-11-06] MEDS: CEFTRIAXONE SOD 1 GM/NS 50 ML 50 ML IV SCH (14:37)
[2018-11-06 15:01] LABS: CLARITY,URINE HAZY (CLEAR); COLOR,URINE YELLOW (YELLOW)
[2018-11-06] MEDS: AZITHROMYCIN 500MG/NS 250 ML 250 ML IV SCH (15:01)
[2018-11-06 15:02] LABS: LEUKOCYTE ESTERASE ,URINE NEGATIVE (NEGATIVE); NITRITE,URINE NEGATIVE (NEGATIVE); PROTEIN,URINE DIPSTICK TRACE (NEGATIVE)
[2018-11-06 15:18] LABS: KETONES,URINE NEGATIVE (NEGATIVE)
[2018-11-06 15:19] LABS: AMORPHOUS SEDIMENT,URINE FEW (FEW); BACTERIA,URINE MANY /HPF; BILIRUBIN,URINE NEGATIVE (NEGATIVE); EPITHELIAL CELLS,URINE MODERATE /LPF; MUCUS,URINE FEW (RARE); URINE UROBILINOGEN 0.2 mg/dL (0.2 - 1); WBC,URINE (MAN) 0-5 /HPF (0-5)
[2018-11-06] MEDS ORDERED: SYMBICORT 16010.2 GM INH (15:32)
[2018-11-06] MEDS ORDERED: SPIRIVA18 MCG INH (15:32)
[2018-11-06] MEDS ORDERED: AMLODIPINE BES2.5 MG PO (15:32)
[2018-11-06] MEDS ORDERED: BYSTOLIC10 MG PO (15:32)
[2018-11-06] MEDS ORDERED: LOSARTAN POTASS25 MG PO (15:32)
[2018-11-06] MEDS ORDERED: AMLODIPINE BESYL5 MG PO (15:32)
[2018-11-06] MEDS ORDERED: IPRATROPIU0.2 MG/1 M INH (15:32)
[2018-11-06] MEDS ORDERED: ATORVASTATIN CA80 MG PO (15:32)
[2018-11-06] MEDS ORDERED: FUROSEMIDE20 MG PO (15:32)
[2018-11-06] MEDS ORDERED: BRILINTA90 MG PO (15:32)
[2018-11-06] MEDS ORDERED: LOW DOSE ASPIRI81 MG PO (15:32)
[2018-11-06 16:36] LABS: ABG HCO3 23 mmol/L (23-28); ABG PCO2 36 mmHg (41-51); ABG PO2 85 mmHg (80-105)
[2018-11-06 17:55] VITALS: BP 143/63
[2018-11-06 17:56] VITALS: BP 143/63
[2018-11-06 17:58] VITALS: BP 143/63
--- NOTE | 2018-11-06 19:00 | NUR ---
Report received from AM RN Mary Ann. Patient received resting on her bed. Patient's at the bedside. Denied pain and no SOB. Patient continued on 2liters oxygen via nasal canula. Bed in lower position,locked. Call zhang within reach. Patient instructed call for help as needed. Will continue to monitor.
[2018-11-06 19:18] VITALS: BP 134/65
[2018-11-06 19:46] VITALS: BP 134/65
[2018-11-06 20:42] LABS: CREATINE KINASE MB 0.4 ng/mL (0-5.0)
[2018-11-06 21:00] VITALS: BP 134/65
[2018-11-07] VITALS (10 sets, daily range): BP systolic 112–140; BP diastolic 55–78
[2018-11-07] MEDS ORDERED: SODIUM CHLORIDE 0.9% 250ML 250 ML ONE (01:05)
[2018-11-07] MEDS: CEFTRIAXONE SOD 1 GM/NS 50 ML 50 ML IV SCH ×2 (01:25→14:40)
[2018-11-07] MEDS: IPRATROPIUM BROMIDE 0.02% 2.5 ML NEB NEB SCH (03:00)
[2018-11-07] MEDS: ALBUTEROL SULF 0.083% NEB SOLN 3 ML NEB NEB SCH ×5 (03:00→19:35)
[2018-11-07 05:48] LABS: BASOPHILS % 0.1 % (0.0-1.0); HEMATOCRIT 34.3 % (34.2-44.1); HEMOGLOBIN 10.5 g/dL (12.0-16.0); LYMPHOCYTES # (AUTO) 1.1 (1.0-3.2); LYMPHOCYTES % 5.7 % (18.0-39.1); MEAN CORPUSCULAR HEMOGLOBIN 28.1 pg (28-32); MEAN CORPUSCULAR HGB CONC 30.6 g/dL (31-35); MEAN CORPUSCULAR VOLUME 91.7 fL (81-99); MONOCYTES # (AUTO) 0.3 (0.2-0.8); MONOCYTES % 1.4 % (4.4-11.3); NEUTROPHILS % 92.2 % (38.7-80.0); PLATELET COUNT 238 x10e3/uL (140-360); RED BLOOD COUNT 3.74 x10e6/uL (3.6-5.1); RED CELL DISTRIBUTION WIDTH 16.9 % (11.7-14.4)
[2018-11-07 06:19] LABS: CREATINE KINASE 34 IU/L (29-168)
[2018-11-07 06:51] LABS: ALBUMIN 2.8 g/dL (3.5-5.0); ALBUMIN/GLOBULIN RATIO 0.7 (0.8-2.0); CALCIUM 9.5 mg/dL (8.4-10.2); CREATININE, SERUM 1.34 mg/dL (0.57-1.11)
[2018-11-07] MEDS: IPRATROPIUM BROMIDE 0.02% 2.5 ML NEB INH SCH ×4 (07:00→19:35)
--- NOTE | 2018-11-07 08:00 | NUR ---
Patient alert and responsive, VSS, denies N/V, fever and chills Head: Atraumatic, normocephalic EENT: Congestion/inflamed nasal passage but clear/ no obstruction, no drainage, throat patent Cardiac: RRR, S1, S2 Normal, no S3, S4. Resp: LS with scattered bilateral wheezing, RR uneven, some dyspnea Abd: BS dim, abd round, Soft, Non-distended, non tender. Extremities: DP pulse faint +1 and posterior tibialis pulse faint +1 Skin: Warm, moist, no lesions, no wounds : Unremarkable, Rounds by attending and reviewed plan of care with patient. Continues on Tele, pulse ox, [id number]% on 3L NC, neb treatments requested at this time due to SOB. Call light within reach, will monitor.
[2018-11-07] MEDS ORDERED: NON-FORMULARY MEDICATION (Aspirin (Low Dose Aspirin Ec) 81 MG) PO SCH (09:00)
[2018-11-07] MEDS ORDERED: FUROSEMIDE 20 MG TAB PO SCH (09:00)
[2018-11-07] MEDS ORDERED: NON-FORMULARY MEDICATION (Atorvastatin Calcium 80 MG) PO SCH (09:00)
[2018-11-07] MEDS: NEBIVOLOL 10 MG TAB PO SCH ×2 (09:09→17:00)
[2018-11-07] MEDS: METHYLPREDNISOLONE SOD SUCC 40 MG/ML VIAL 1ML IV SCH ×2 (09:09→20:34)
[2018-11-07] MEDS: FUROSEMIDE 40 MG TAB PO SCH ×2 (09:09→17:00)
[2018-11-07] MEDS: AMLODIPINE BESYLATE 5 MG TAB PO SCH (09:09)
[2018-11-07] MEDS: TICAGRELOR 90 MG TABLET PO SCH ×2 (09:09→17:00)
[2018-11-07] MEDS: LOSARTAN POTASSIUM 25 MG TAB PO SCH ×2 (09:09→17:00)
[2018-11-07] MEDS: AZITHROMYCIN 500MG/NS 250 ML 250 ML IV SCH (09:09)
--- NOTE | 2018-11-07 09:10 | NUR ---
Consults to Dr. Root and Dr. Roberts and consults called in at this time
[2018-11-07] MEDS: BUDESONIDE/FORMOTEROL 160/4.5MCG INHALER INH SCH ×2 (10:45→19:00)
[2018-11-07] MEDS: TIOTROPIUM 18 MCG INH POWDER INH SCH (10:45)
--- NOTE | 2018-11-07 11:39 | NUR ---
Corrected consult from Dr. Eric Ly to Dr. Osiel Ly, sales project engineer who is here at this time to see patient.
--- NOTE | 2018-11-07 12:01 | NUR ---
Patient alert and responsive, assisted OOB to bathroom, VSS and off O2, SPO2 at 98% RA and desats to 95% with ambulation, some wheezing and mild dyspnea as ambulates, uses cane. Rounds by rewards consultant and orders patient may participate in activities, OOB to chair and ambulate and wean off oxygen, will monitor.
--- NOTE | 2018-11-07 13:44 | History and Physical ---
CHIEF COMPLAINT: Shortness of breath, chest pain. HISTORY OF PRESENT ILLNESS: A 68-year-old female, morbidly obese with known history of COPD, chronic smoker, also history of hypertension and hyperlipidemia, presents to the ED with complaints of substernal chest pain on the right lower aspect of the chest. She reports that this chest pain began yesterday morning suddenly when she was at home. She describes it more as a pressure like with no radiation anywhere. No nausea, no vomiting associated with it. She does [facility]. Also endorses some shortness of breath with underlying wheezing, coughing, congestion. She reports that she does take inhalers and does see a reliability technologist in [facility]. The patient is seen and evaluated at bedside on the medical floor. She is currently stable, has no other complaints at this time. Her chest pain is much improved. She does have wheezing on examination. Otherwise, no other issues at this time. REVIEW OF SYSTEMS: Pertinent positives: Shortness of breath, cough, congestion, wheezing, chest pain. Pertinent negatives: Denies any palpitation, nausea, vomiting, diarrhea, dysuria, hematuria, frequency, urgency, lightheadedness, dizziness, abdominal pain, headaches, fever or any other complaints. The rest of 14-point review of systems have been reviewed with the patient and are negative. ALLERGIES: NO KNOWN DRUG ALLERGIES. HOME MEDICATIONS: Amlodipine 5 mg daily. She takes Symbicort two puffs inhaled b.i.d., furosemide 40 mg daily, losartan 25 mg p.o. b.i.d., Bystolic 10 mg p.o. b.i.d., Brilinta 90 mg b.i.d., Spiriva inhaled daily, aspirin 81 mg daily, and Lipitor 80 mg daily. PAST MEDICAL HISTORY: COPD, CAD, hyperlipidemia, hypertension, morbid obesity. PAST SURGICAL HISTORY: Reports none. FAMILY HISTORY: Hypertension and diabetes. SOCIAL HISTORY: No drugs. No alcohol. She does smoke and she continues to smoke. She is on 2 L nasal cannula home oxygen. PHYSICAL EXAMINATION: VITAL SIGNS: Temperature 97.9, pulse 77, respiratory rate 17, blood pressure 121/71, pulse ox 97% on 2 L nasal cannula. GENERAL: Not in acute distress. Alert and oriented x3. Cooperative on examination. HEENT: Head is normocephalic and atraumatic. Eyes; pupils are equal, round, and reactive to light bilaterally. Extraocular movements are intact bilaterally. Throat, no evidence of erythema or exudates in the posterior pharynx. Has poor dentition. NECK: Supple. Good range of motion. PULMONARY: She has expiratory wheezing appreciated. There are fine rales. No rhonchi. Inspiratory effort is good. CARDIOVASCULAR: Positive S1, S2. No murmurs, rubs, or gallops appreciated. ABDOMEN: Soft, nondistended, and nontender to palpation. Bowel sounds present. MUSCULOSKELETAL: Strength is 5/5 throughout. No evidence of any muscle deficits on examination. No weakness appreciated. NEUROLOGICAL: Cranial nerves 2 through 12 grossly intact. No evidence of any neurological deficits on exam. SKIN: Intact. Warm to touch. Good cap refill. PSYCHIATRIC: Normal affect and mood. EXTREMITIES: No edema. Good range of motion throughout. LAB FINDINGS: Show white count is 19.5, hemoglobin 10.5, hematocrit is 34.3, platelets of 238. Coagulation; PT 14.7, INR 1.1, and PTT 45. Chemistry; sodium 142, potassium 4, chloride 107, bicarb 24, anion gap of 16, BUN is 28, creatinine is 1.3, glucose 136, calcium is 9.5. LFTs were normal. Troponins were negative. Albumin 2.8. Urinalysis negative. Urine and blood cultures were pending. IMAGING STUDIES: Chest x-ray shows some patchy opacities in the left lower base, may represent pneumonia or atelectasis in the appropriate clinical setting. IMPRESSION: 1. Chronic obstructive pulmonary disease exacerbation. 2. Community-acquired pneumonia. 3. Hypertension. 4. Chest pain likely atypical in nature with history of coronary artery disease in the past, on antiplatelet therapy. PLAN: At this time, in relation to the COPD, we have started her on steroids, neb treatments, and antibiotics and resume same inhalers at home. Get Pulmonary consultation as well. The patient is already on home O2 2 L continuously. Continue with IV antibiotics for community-acquired pneumonia with azithromycin and Rocephin. Blood cultures are pending as well as urine cultures. In relation to her chest pain, likely atypical in nature, but we will get Cardiology to evaluate her due to her cardiac history in the past. Resume same cardioprotective medications at home. Continue same home antihypertensive medications, p.r.n. hydralazine. Lovenox for DVT prophylaxis. The patient is currently stable with no other issues. All questions were answered with the patient with the nurse available at bedside. MD JENNIFER Chan/MODL /[id number]
[2018-11-07] MEDS: NICOTINE 21 MG/EA PATCH TOP SCH (13:45)
--- NOTE | 2018-11-07 15:42 | Diagnostic Imaging Report ---
EXAMINATION: PA and lateral views of the chest. COMPARISON: Single view chest 11/06/2018 CLINICAL HISTORY: Wheezing, right-sided pleurisy DISCUSSION: There is patchy consolidation in the right lung base, likely the middle lobe. No additional airspace consolidation. Lateral radiograph shows no pleural effusion. No pneumothorax. Tortuous thoracic aorta with atherosclerotic calcification. Borderline enlargement of the cardiac silhouette without overt pulmonary edema. No acute osseous abnormality. IMPRESSION: Patchy right middle lobe consolidation compatible with pneumonia in the correct clinical setting. Follow-up chest radiograph in 6-8 weeks is suggested to document resolution. Borderline cardiomegaly without pulmonary edema. Signed by: Dr. Berto Bravo M.D. on 11/07/2018 3:39 PM
--- NOTE | 2018-11-07 16:53 | NUR ---
Rounds by Dr. Barlow, cardiology and orders for Echo and state patient is cleared from his end and is cleared from cardiac standpoint.
[2018-11-07] MEDS: ENOXAPARIN SOD INJ 40 MG/0.4 ML SYR SC SCH (17:00)
--- NOTE | 2018-11-07 18:21 | Consultation ---
DATE OF CONSULTATION: 11/07/2018 Pulmonary Consultation HISTORY OF PRESENT ILLNESS: Ms. Barfield is a 68-year-old white woman with multiple medical problems, who presented yesterday to the hospital with right-sided chest pain that was sharp, worse with breathing. Originally, thought she was having pneumonia because she had chest pain, with previous heart attack. She has since started with cough, is unable to expectorate sputum, but denies fevers, chills, night sweats, nausea and vomiting. The pain she says is located under her right breast. She denies any rash, nausea, vomiting, diarrhea, lightheadedness or dizziness. She does admit to having lower extremity edema that has been going on for a while. She uses oxygen at home 2 liters. She was recently in the hospital, found to have what sounds like a right pleural effusion in evaluation and dealing with replacement or new coronary artery stent and stents for the lower extremities. PAST MEDICAL HISTORY: Includes COPD/emphysema. She is on home oxygen at 2 liters, coronary artery disease, status post DE and stent, congestive heart failure, pleural effusion, peripheral arterial disease with lower extremity bypass. PAST SURGICAL HISTORY: Includes left heart cath, stents, lower extremity angioplasty and right lower extremity bypass. OUTPATIENT MEDICATIONS: Reviewed. She takes Xopenex, aspirin, Atrovent. Current medications include other nebulized bronchodilators as well as Rocephin, azithromycin, Solu-Medrol and oral Lasix. ALLERGIES: NONE. SOCIAL HISTORY: She used to smoke a pack-a-day, but now she is down to 1 cigarette in the morning with her coffee. No drugs. No alcohol. She is . She ambulates with a cane. FAMILY HISTORY: Noncontributory. REVIEW OF SYSTEMS: Noncontributory except as noted above. PHYSICAL EXAMINATION: VITAL SIGNS: She has been afebrile since presentation around 98.1-98.4 degrees. Heart rate has been in the 70s. Respiratory rate has been 12 to 19, blood pressure 138/78 most recently. Currently, she is 98% to 100% on room air after coming back from the bathroom. GENERAL APPEARANCE: This is an obese appearing woman. Her BMI is 46.1. HEENT: Her head is normocephalic. Mucous membranes are moist. NECK: Short and thick. CHEST: Has diffuse wheezes bilaterally. HEART: Has regular rate and rhythm without murmurs, rubs or gallops. ABDOMEN: Obese, soft, nontender. EXTREMITIES: Have 1 to 2+ pitting edema. IMAGING DATA: Her chest x-ray shows cardiomegaly with hazy opacity at the right base. LABORATORY DATA: Micro so far is unremarkable. Electrolytes were unremarkable. When she came in her creatinine was 1.48, it is down to 1.34. LFTs were within normal limits. She had 3 sets of negative cardiac enzymes. B natriuretic peptide is 184. Her albumin is 3.2. Urinalysis has many bacteria with moderate urine epithelial cells sediment. Coags were normal. White count was 19, hemoglobin and hematocrit were 11 and 38 at admission with 288,000 platelets. She has a left shift. ABG appears 7.40, PCO2 of 36, PO2 of 85 on 2 liters. ASSESSMENT: 1. Right lower lobe pneumonia. 2. Pleurisy. 3. Chronic obstructive pulmonary disease with acute exacerbation. 4. Congestive heart failure not specified at this time. 5. Coronary artery disease. 6. Peripheral arterial disease. 7. Chronic kidney disease. 8. Nicotine dependance for cigarettes. RECOMMENDATIONS AND PLAN: Continue the broad-spectrum antibiotics. Clinically, she appears to be improving in my discussion with the nurse. Continue the nebulized bronchodilators and steroids. Continue DVT prophylaxis. I will obtain a followup two view chest x-ray depending on the findings we may need to do a CT. Continue with diuretics. Follow up with BMP. She may need to increase her Lasix given her edema. Further recommendations per findings. MD WONG Burroughs/JULIETH /[id number] JACKIE
--- NOTE | 2018-11-07 20:32 | Consultation ---
DATE OF CONSULTATION: 11/07/2018 REASON FOR CONSULTATION: Chest pain. HISTORY OF PRESENT ILLNESS: Ms. Barfield is a 68-year-old female with past medical history of hypertension; hypercholesteremia; coronary artery disease with prior history of myocardial infarction in 2012; CAD with stenting most recently with Dr. Vega in September 29, 2018; PAD with prior history of left lower extremity stent and has a previous history of right femoral-popliteal bypass with Dr. Tobin in the past; COPD, on home oxygen with intermittent compliance; and tobacco dependence, smokes one pack per day. The patient presents to this institution with several days of chills, coughing is minimally productive and having right-sided chest pain underneath her right breast region, exacerbated by coughing and taking a deep breath in, and has some radiation around the side to her back. The patient was worried that this could be her heart. She maintains compliance with her anti-platelet therapy of aspirin and Brilinta, and again her last heart catheterization was just over a month ago where she had revascularization done at that time. PAST MEDICAL HISTORY: 1. Hypertension, essential. 2. COPD, on home oxygen. 3. CHF, unclear details. 4. CAD with prior history of myocardial infarction in 2012 and multiple stents, most recently in September 29, 2018. 5. Peripheral artery disease with claudication with history of right lower extremity bypass with Dr. Tobin and left lower extremity stenting by Dr. Vega. FAMILY HISTORY: Mother at 83 with a heart attack. Father at the age of 40 with a heart attack. SOCIAL HISTORY: She is a one [id number] smoker. Denies any alcohol or illicit drug use. ALLERGIES: NO KNOWN DRUG ALLERGIES. HOME MEDICATIONS: Include aspirin 81 mg daily, Brilinta 90 mg b.i.d., Norvasc 2.5 mg b.i.d., atorvastatin 80 mg daily, Symbicort 160/4.5 two puffs inhaled b.i.d., Lasix 40 mg b.i.d., ipratropium inhaled q.6 h., losartan 25 mg b.i.d., and Bystolic 10 mg b.i.d. REVIEW OF SYSTEMS: GENERAL: Positive for chills. Denies any fevers. No weight changes. HEENT: No headaches, visual complaints, sore throat, or stuffy nose. RESPIRATORY: Positive for wheezing. Positive for pleuritic chest pain as per above, shortness of breath, as well as a cough that is mildly productive. CARDIOVASCULAR: As per HPI. Denies any orthopnea or PND. No lower extremity edema. GI: Denies any abdominal pain, bright red blood per rectum, melena, hematemesis, nausea, or vomiting. : Denies any dysuria, pyuria, or change in urinary frequency. MUSCULOSKELETAL: Has bilateral lower extremity claudication and lower back pain. ENDOCRINE: Denies any heat or cold intolerance. NEUROLOGIC: Denies any focal weakness, numbness, tingling, seizures, headache, history of TIA or stroke. Remainder review of systems negative otherwise mentioned. PHYSICAL EXAMINATION: VITAL SIGNS: Height of 63 inches, weight of 260 pounds, BMI is 46.1, temperature of 97.5, pulse of 78, respiratory rate of 18, blood pressure 132/60, and O2 saturation 98% on room air. GENERAL: This is a well-nourished, obese lady, who is currently in no apparent distress. HEENT: Normocephalic, atraumatic. Pupils equal, round, and reactive to light. Extraocular movements are intact. Oropharynx is clear. NECK: No elevation in jugular venous pulsation. There is left carotid bruit. CARDIOVASCULAR: Regular rate and rhythm. Normal S1, S2. A 2/6 systolic murmur at the left lower sternal border. LUNGS: Show scattered wheezing, poor air flow throughout lung dubois and diminished air entry compatible with advanced COPD type changes. There is tenderness to the palpation of the right inferior breast, chest wall, as well as radiating also to the right upper quadrant region. ABDOMEN: Soft, nontender, obese. Normoactive bowel sounds. No hepatosplenomegaly. BACK: No costovertebral angle tenderness. EXTREMITIES: Warm with 1+ radial pulses. There is a right groin scar with stigmata of femoral-popliteal bypass. There are absent pedal pulses bilaterally. NEUROLOGIC: Cranial nerves 2 through 12 are intact. Strength is 5/5, grossly nonfocal. PSYCH: Normal fluent speech. Appropriate affect. No anxiety or delusions. LABORATORY DATA: White count 19.5, hemoglobin 12.5, hematocrit of 34.3, and platelets of 338. Sodium 143, potassium 4.0, chloride 107, bicarb 24, BUN 28, and creatinine 1.34. Glucose of 136. Calcium of 9.5, AST 10, ALT 6, alkaline phosphatase 86, total protein 6.7, albumin of 2.8. BNP was 184. Troponin went from 0.010-0.006, less than 0.001. INR is 1.1. UA shows 0-5 white cells. ABG shows pH 7.40, pCO2 of 36, PO2 of 85. RADIOGRAPHIC DATA: Chest x-ray shows low lung volumes and patchy opacities in the bilateral lower lung zones, which could be pneumonia. EKG reveals sinus rhythm, incomplete right bundle-branch block with left posterior fascicular block, but no ST-T wave changes concerning for ischemia. DIAGNOSES: 1. Chest pain, largely noncardiac by history. 2. Coronary artery disease with recent history of PCI in September of 2018, on Brilinta therapy. 3. PAD with prior history of left lower extremity and right lower extremity revascularization. 4. Chronic obstructive pulmonary disease, active smoker, contemplative to quitting, on home oxygen. 5. Most likely bronchopneumonia. 6. Hypercholesteremia. 7. Left carotid bruit. PLAN/RECOMMENDATIONS: 1. We will continue aspirin 81 mg daily, Plavix 75 mg daily. 2. Statin therapy. 3. Continue heart failure regimen. 4. We will evaluate her heart structurally with an echo. 5. We will check carotid duplex. 6. Agree with empiric antibiotics, currently on Rocephin therapy. 7. We will continue to follow this patient. Thank you for this referral. MD ADALGISA Sanders/JULIETH /[id number]
[2018-11-07] MEDS: ATORVASTATIN 40 MG TAB PO SCH (20:34)
--- NOTE | 2018-11-07 21:50 | NUR ---
Report given to ANA Solorio. Patient transferred to 293 @2137 by wheelchair with stable condition. V/S WNL.
--- NOTE | 2018-11-07 21:50 | NUR ---
patient received to room 293 via wheelchair from [facility]. vss. no c/o pain noted. telemetry #24 NSR (68). respirations even and unlabored. 1l/nc in use. call zhang placed within reach. patient instructed to call for assistance when needed.
[2018-11-08] VITALS (8 sets, daily range): BP systolic 110–139; BP diastolic 52–62
[2018-11-08] MEDS: ALBUTEROL SULF 0.083% NEB SOLN 3 ML NEB NEB SCH ×6 (00:15→19:10)
[2018-11-08] MEDS ORDERED: SODIUM CHLORIDE 0.9% 250ML 250 ML ONE ×2 (00:32→12:04)
[2018-11-08] MEDS: CEFTRIAXONE SOD 1 GM/NS 50 ML 50 ML IV SCH ×2 (00:33→12:14)
[2018-11-08] MEDS: TIOTROPIUM 18 MCG INH POWDER INH SCH ×2 (06:00→16:59)
[2018-11-08 06:22] LABS: HEMATOCRIT 33.1 % (34.2-44.1); HEMOGLOBIN 10.3 g/dL (12.0-16.0); MEAN CORPUSCULAR HEMOGLOBIN 28.4 pg (28-32); MEAN CORPUSCULAR HGB CONC 31.1 g/dL (31-35); MEAN CORPUSCULAR VOLUME 91.2 fL (81-99); PLATELET COUNT 227 x10e3/uL (140-360); RED BLOOD COUNT 3.63 x10e6/uL (3.6-5.1); RED CELL DISTRIBUTION WIDTH 16.7 % (11.7-14.4)
[2018-11-08 06:41] LABS: ALBUMIN 2.9 g/dL (3.5-5.0); ALBUMIN/GLOBULIN RATIO 0.8 (0.8-2.0); ANION GAP 14.3 mmol/L (8-16); CALCIUM 9.1 mg/dL (8.4-10.2); CREATININE, SERUM 1.29 mg/dL (0.57-1.11); POTASSIUM 3.3 mmol/L (3.5-5.1)
[2018-11-08] MEDS: IPRATROPIUM BROMIDE 0.02% 2.5 ML NEB INH SCH ×4 (07:00→19:10)
[2018-11-08] MEDS: BUDESONIDE/FORMOTEROL 160/4.5MCG INHALER INH SCH ×2 (07:00→16:59)
--- NOTE | 2018-11-08 07:10 | NUR ---
pt alert resp even and unlabored at this time, no distress noted, when asked pt voiced no concerns at this time, call light in reach. will cont to monitor.
[2018-11-08 07:16] LABS: LYMPHOCYTES % (MANUAL) 4 % (19-48); MONOCYTES % (MANUAL) 5 % (3.4-9.0); NEUTROPHILS % (MANUAL) 91 % (40-74)
[2018-11-08] MEDS: METHYLPREDNISOLONE SOD SUCC 40 MG/ML VIAL 1ML IV SCH (08:42)
[2018-11-08] MEDS: TICAGRELOR 90 MG TABLET PO SCH ×2 (08:42→16:30)
[2018-11-08] MEDS: ASPIRIN 81 MG ENTERIC COATED PO SCH (08:42)
[2018-11-08] MEDS: AZITHROMYCIN 500MG/NS 250 ML 250 ML IV SCH (08:42)
[2018-11-08] MEDS: NEBIVOLOL 10 MG TAB PO SCH ×2 (08:43→16:31)
[2018-11-08] MEDS: FUROSEMIDE 40 MG TAB PO SCH ×2 (08:45→16:31)
[2018-11-08] MEDS: LOSARTAN POTASSIUM 25 MG TAB PO SCH ×2 (08:45→16:31)
[2018-11-08] MEDS: AMLODIPINE BESYLATE 5 MG TAB PO SCH (08:45)
--- NOTE | 2018-11-08 10:23 | NUR ---
dr. murguia here to see pt.
[2018-11-08] MEDS ORDERED: POTASSIUM CHLORIDE 20 MEQ TAB CR PO ONE (11:00)
[2018-11-08] MEDS: NICOTINE 21 MG/EA PATCH TOP SCH (12:15)
--- NOTE | 2018-11-08 14:51 | Progress Note ---
DATE: 11/08/2018 Medicine Progress Note SUBJECTIVE: The patient states she is breathing much better today. She still has some wheezing and a productive cough. PHYSICAL EXAMINATION: VITAL SIGNS: Temperature is 97.1, pulse 60, respiratory rate is 18, blood pressure 125/64, pulse ox 100% on room air. GENERAL: Not in acute distress. Alert and oriented x3. Cooperative on examination. HEENT: Head is normocephalic and atraumatic. Eyes, pupils are equal, round and reactive to light bilaterally. Extraocular movements are intact bilaterally. NECK: Supple. Good range of motion throughout. PULMONARY: The patient has expiratory wheezing appreciated with better inspiratory effort. CARDIOVASCULAR: Positive S1, S2. No murmurs, rubs, or gallops appreciated. ABDOMEN: Soft, nondistended, and nontender to palpation. Bowel sounds present. MUSCULOSKELETAL: Strength is 5/5 throughout. No evidence of any muscle deficits on examination. No weakness appreciated. NEUROLOGIC: Cranial nerves 2 through 12 are grossly intact. No evidence of any neurological deficits on exam. SKIN: Intact. Warm to touch. Good cap refill. PSYCHIATRIC: Normal affect and mood. EXTREMITIES: No edema. Good range of motion throughout. LAB FINDINGS: White count 17.9. The patient is on steroids. Hemoglobin 10.7, hematocrit 33, platelets of 327. Sodium 140, potassium 3.3, chloride 105, bicarb 24, anion gap of 14, BUN is 35, creatinine is 5.29, glucose is 139, calcium 9.1. LFTs were normal. Albumin was 2.9. Urinalysis is negative. Urine culture is negative. Final blood cultures; no growth to date. IMPRESSION: 1. Chronic obstructive pulmonary disease exacerbation. 2. Community-acquired pneumonia. 3. Hypertension. 4. Atypical chest pain. PLAN: At this time, continue with steroids, neb treatments, antibiotic therapy. Assess for home O2 which I discussed with the nurse. Pulmonary is following as well. She has also the . Blood cultures, no growth to date. In relation to her chest pain, it is atypical in nature pending 2D echo and carotid ultrasound. Continue same home medications p.r.n. hydralazine. Lovenox for DVT prophylaxis. Once the patient improves, then we can consider the patient to be discharged home and also once she is cleared by the consultants. Following her potassium is low at 3.3, we will replace. MD JENNIFER Chan/JULIETH /[id number]
[2018-11-08] MEDS: ENOXAPARIN SOD INJ 40 MG/0.4 ML SYR SC SCH (16:31)
--- NOTE | 2018-11-08 19:00 | NUR ---
report given to oncoming nurse,for continued care.
--- NOTE | 2018-11-08 19:00 | NUR ---
patient received awake, alert, lying quietly in bed. no c/o pain noted. pm assessment complete. patient instructed to call for assistance when needed.
[2018-11-08] MEDS ORDERED: ONDANSETRON HCL INJ 2MG/ML 2ML 2 MG/ML VIAL IV PRN (19:45)
[2018-11-08] MEDS ORDERED: ACETAMINOPHEN 325 MG TAB PO PRN (19:45)
[2018-11-08] MEDS ORDERED: HYDROCODONE/APAP 5MG-325MG TAB PO PRN (19:45)
--- NOTE | 2018-11-08 19:57 | NUR ---
patient medicated with tylenol 650 mg po for c/o mild bilateral leg pain 3/10 at this time.
[2018-11-08] MEDS: ATORVASTATIN 40 MG TAB PO SCH (20:10)
[2018-11-09] VITALS (7 sets, daily range): BP systolic 133–159; BP diastolic 62–67
[2018-11-09] MEDS: ALBUTEROL SULF 0.083% NEB SOLN 3 ML NEB NEB SCH ×7 (00:25→20:10)
[2018-11-09] MEDS: CEFTRIAXONE SOD 1 GM/NS 50 ML 50 ML IV SCH ×2 (00:52→12:41)
--- NOTE | 2018-11-09 05:40 | NUR ---
patient medicated with norco 5/325 mg po for c/o right rib cage area per patient 11/25 at this time.
--- NOTE | 2018-11-09 05:45 | NUR ---
patient oob to recliner. at patients side.
[2018-11-09 06:20] LABS: BASOPHILS % 0.1 % (0.0-1.0); HEMATOCRIT 33.3 % (34.2-44.1); HEMOGLOBIN 10.4 g/dL (12.0-16.0); LYMPHOCYTES # (AUTO) 1.7 (1.0-3.2); LYMPHOCYTES % 8.9 % (18.0-39.1); MEAN CORPUSCULAR HEMOGLOBIN 28.2 pg (28-32); MEAN CORPUSCULAR HGB CONC 31.2 g/dL (31-35); MEAN CORPUSCULAR VOLUME 90.2 fL (81-99); MONOCYTES # (AUTO) 1.1 (0.2-0.8); MONOCYTES % 5.5 % (4.4-11.3); NEUTROPHILS # (AUTO) 16.5 (2.1-6.9); NEUTROPHILS % 84.4 % (38.7-80.0); PLATELET COUNT 256 x10e3/uL (140-360); RED BLOOD COUNT 3.69 x10e6/uL (3.6-5.1); RED CELL DISTRIBUTION WIDTH 16.7 % (11.7-14.4)
--- NOTE | 2018-11-09 06:50 | NUR ---
RECEIVED PATIENT RESTING IN BED, NO ACUTE DISTRESS NOTED. FAMILY AT BEDSIDE. CALL LIGHT WITHIN REACH. BED IN THE LOWEST POSITION.
[2018-11-09] MEDS: IPRATROPIUM BROMIDE 0.02% 2.5 ML NEB INH SCH ×4 (07:00→20:10)
[2018-11-09] MEDS: BUDESONIDE/FORMOTEROL 160/4.5MCG INHALER INH SCH ×2 (07:11→20:10)
[2018-11-09 07:25] LABS: ANION GAP 15.3 mmol/L (8-16); CALCIUM 9.1 mg/dL (8.4-10.2); CREATININE, SERUM 1.28 mg/dL (0.57-1.11); POTASSIUM 3.3 mmol/L (3.5-5.1)
[2018-11-09] MEDS ORDERED: POTASSIUM CHLORIDE 20 MEQ TAB CR PO NR (09:00)
[2018-11-09] MEDS: NEBIVOLOL 10 MG TAB PO SCH ×2 (09:21→16:50)
[2018-11-09] MEDS: TICAGRELOR 90 MG TABLET PO SCH ×2 (09:21→16:50)
[2018-11-09] MEDS: METHYLPREDNISOLONE SOD SUCC 40 MG/ML VIAL 1ML IV SCH (09:21)
[2018-11-09] MEDS: AZITHROMYCIN 500MG/NS 250 ML 250 ML IV SCH (09:21)
[2018-11-09] MEDS: ASPIRIN 81 MG ENTERIC COATED PO SCH (09:21)
[2018-11-09] MEDS: LOSARTAN POTASSIUM 25 MG TAB PO SCH ×2 (09:21→16:51)
[2018-11-09] MEDS: FUROSEMIDE 40 MG TAB PO SCH ×2 (09:22→16:51)
[2018-11-09] MEDS: AMLODIPINE BESYLATE 5 MG TAB PO SCH (09:22)
--- NOTE | 2018-11-09 11:55 | Progress Note ---
DATE: 11/09/2018 Medicine Progress Note SUBJECTIVE: The patient continues to complain of shortness of breath. Also reports having some right rib pain. She is on home O2 already. She is on 2 L here. Does have some wheezing on examination. PHYSICAL EXAMINATION: VITAL SIGNS: Temperature is 96.7, pulse is 72, respiratory rate is 19, blood pressure is 144/65, pulse ox 98% on 2 L nasal cannula. GENERAL: Not in acute distress. Alert and oriented x3. Cooperative on examination. HEENT: Head is normocephalic and atraumatic. Eyes, pupils are equal, round and reactive to light bilaterally. Extraocular movements are intact bilaterally. Throat, no evidence of any erythema or exudates in the posterior pharynx. Has poor dentition. NECK: Supple. Good range of motion throughout. PULMONARY: Clear to auscultation bilaterally. No wheezing, no rales, no rhonchi. No crackles appreciated. CARDIOVASCULAR: Positive S1, S2. No murmurs, rubs, or gallops appreciated. ABDOMEN: Soft, nondistended, and nontender to palpation. Bowel sounds present. MUSCULOSKELETAL: Strength is 5/5 throughout. No evidence of any muscle deficits on examination. No weakness appreciated. NEUROLOGIC: Cranial nerves 2 through 12 are grossly intact. No evidence of any neurological deficits on exam. SKIN: Intact. Warm to touch. Good cap refill. PSYCHIATRIC: Normal affect and mood. EXTREMITIES: No edema. Good range of motion throughout. LAB FINDINGS: Show white count 19.4 on steroids, hemoglobin 10.4, hematocrit 33.3, and platelets of 256. Chemistry; sodium 143, potassium 3.3, chloride 104, bicarb 27, anion gap of 15, BUN 32, creatinine is 1.28, glucose is 9.1. BNP 208. Procalcitonin level is pending. MICROBIOLOGY: Blood cultures negative. Urine cultures were negative. Carotid ultrasound is pending. IMPRESSION: 1. Chronic obstructive pulmonary disease exacerbation. 2. Community-acquired pneumonia. 3. Hypertension. 4. Atypical chest pain. PLAN: At this time continue with steroids, neb treatments, and antibiotics. Continues to complain of right-sided chest pain. We will go ahead and get a V/Q scan to rule out PE. She is already on home O2 2 L. Pulmonary is following closely. Blood cultures were all negative. In relation to her chest pain required ultrasound and 2D echo are still pending after several days. Cardiology is following. Continue with Lovenox for DVT prophylaxis. We will replace her potassium as well. Cardiology and Pulmonary have been consulted. Otherwise, we will continue with same plan of care and if the patient is doing well tomorrow and wants to go home and cleared by consultants we will discharge. MD JENNIFER Chan/JULIETH /[id number]
[2018-11-09] MEDS: NICOTINE 21 MG/EA PATCH TOP SCH (12:36)
--- NOTE | 2018-11-09 14:25 | NUR ---
CASE MANAGEMENT INITIAL ASSESSMENT Rn Patient Care to bedside to discuss plan of care with patient/family. CM/SW role and care transitions discussed. Anticipated discharge plan discussed along with duration of care. CM/SW discussed patients right to make decisions in care. CM/SW work hours given. Patient lives: [place] [address] HOME Admit/Transfer: ER Hospital/ER visits since last admit: PT HAD STENTS PLACED AT [facility] 09/29/2018 POA/Emergency contact: Current/Previous Home Health: NONE PCP/Follow-up Care: DR. WESLEY, PULMONARY / VALERIA RASHEED PT WILL SEE NEXT WEEK, CARDIO / DR. RAMIREZ Current/Previous DME: ROLLATOR, WALKER, CANE, HOME O2 W NAVIN DELAROSA, LEISA Other Services: NONE Employment Status: RETIRED INSTRUCTOR [employer] Areas of Concerns: HAVING PAIN TO RIB AREA UNDER HER R ARM Referral Needs: POSSIBLE HH Education Needs: NONE IMM/CHU given and signed (if applicable): IMM LETTER EXPLAINED. LETTER WAS SIGNED AND COPY TO PT AND COPY TO CHART. Goal for discharge: HOME CM/SW left business card at the bedside with contact information. Name and number was also written on the patients whiteboard. Patient verbalized understanding of discussion. CM will follow-up with ongoing discharge and transition of care needs.
--- NOTE | 2018-11-09 14:41 | Diagnostic Imaging Report ---
Ventilation/perfusion lung scan Clinical Information: 68 F with chest pain and SOB Comparison: Chest radiograph 11/07/2018 Discussion: Xenon-133 gas 19.2 mCi was administered via inhalation. Dynamic images of the lungs in the posterior projection were obtained through single breath, equilibrium, and washout phases. Distribution of tracer activity is irregular throughout the lungs. There are no segmental ventilatory defects. Washout of tracer is diffusely delayed with bibasilar air trapping. Perfusion images of the lungs were obtained in multiple projections following intravenous administration of approximately 6.9 mCi of Tc-99m MAA. Distribution of tracer is irregular throughout the lungs. The contours of the lungs are well demarcated. There are no segmental perfusion defects of any size. The cardiomediastinal silhouette is unremarkable. Impression: 1. Scan findings represent a VERY LOW probability for acute pulmonary embolic disease based on the PIOPED II criteria. 2. Scan evidence of obstructive lung disease. Signed by: Dr. Shanice Briseno M.D. on 11/09/2018 2:37 PM
--- NOTE | 2018-11-09 14:59 | Diagnostic Imaging Report ---
EXAM: CT Chest without contrast INDICATION: Pneumonia, pleuritic chest pain. COMPARISON: Chest radiograph 11/07/2018. TECHNIQUE: Chest was scanned utilizing a multidetector helical scanner from the lung apex through the level of the adrenal glands without administration of IV contrast. Coronal and sagittal reformations were obtained. Routine protocol was performed. RADIATION DOSE: Total DLP: 511.5 mGy*cm Dose modulation, iterative reconstruction, and/or weight based adjustment of the mA/kV was utilized to reduce the radiation dose to as low as reasonably achievable. COMPLICATIONS: None FINDINGS: LINES/ TUBES: None. LUNGS AND AIRWAYS/PLEURA: The central airways are patent. Diffuse mild bronchial wall thickening. This likely mucoid impaction within the distal trachea extending into the bilateral mainstem bronchi. There is somewhat nodular consolidative opacity within the right middle lobe with associated air bronchograms. There is an additional 1.2 cm nodule opacity within the right middle lobe. There is a small right pleural effusion with patchy consolidative opacity within the right lower lobe. There is a 4 mm solid nodule in the left upper lobe on series 3, image 27. There is a 3 mm subpleural nodule in the left upper lobe on image 16. HEART AND MEDIASTINUM: The thyroid gland is normal. No mediastinal, hilar or axillary lymphadenopathy. No cardiomegaly or pericardial effusion. Extensive coronary atherosclerosis with RCA stent. UPPER ABDOMEN: Limited non-contrast views of the upper abdomen. There is a hypodense left adrenal nodule, measuring up to 2.2 cm (5 HU; series 2, image 109) with associated calcification, consistent with benign etiology. BONES: No acute osseous abdomen. No suspicious lytic or blastic lesions. SOFT TISSUES: Unremarkable. IMPRESSION: Right middle lobe nodular consolidative opacity with associated air bronchograms and adjacent nodular opacity likely represents pneumonia in the acute setting. Small right pleural effusion with patchy atelectasis or pneumonia in the right lower lobe. Follow-up chest CT is recommended in 3 months to assess for resolution and exclude underlying mass. Additional left sided solid nodules, measuring up to 4 mm, which can be evaluated on follow-up CT. Signed by: Dr. Sebastian Arellano MD on 11/09/2018 2:56 PM
[2018-11-09] MEDS: ENOXAPARIN SOD INJ 40 MG/0.4 ML SYR SC SCH (16:51)
--- NOTE | 2018-11-09 19:06 | NUR ---
REPORT GIVEN TO ONCOMING NURSE, PATIENT IS SITTING UP IN BED. NO ACUTE DISTRESS NOTED. FAMILY MEMBER AT BEDSIDE. CALL LIGHT WITHIN REACH. BED IN THE LOWEST POSITION.
--- NOTE | 2018-11-09 19:10 | NUR ---
patient received awake, alert, sitting up on side of bed. no c/o pain noted. respirations even and unlabored. 02/2l/nc in use. pm assessment complete. patient instructed to call for assistance when needed.
[2018-11-09] MEDS: ATORVASTATIN 40 MG TAB PO SCH (20:10)
[2018-11-10] VITALS (8 sets, daily range): BP systolic 122–155; BP diastolic 60–70
[2018-11-10] MEDS: CEFTRIAXONE SOD 1 GM/NS 50 ML 50 ML IV SCH ×2 (00:48→14:26)
[2018-11-10] MEDS: ALBUTEROL SULF 0.083% NEB SOLN 3 ML NEB NEB SCH ×5 (04:35→20:11)
[2018-11-10 06:10] LABS: BASOPHILS % 0.2 % (0.0-1.0); EOSINOPHILS % 0.1 % (0.0-6.0); HEMATOCRIT 33.7 % (34.2-44.1); HEMOGLOBIN 10.3 g/dL (12.0-16.0); LYMPHOCYTES # (AUTO) 1.7 (1.0-3.2); LYMPHOCYTES % 13.3 % (18.0-39.1); MEAN CORPUSCULAR HEMOGLOBIN 27.9 pg (28-32); MEAN CORPUSCULAR HGB CONC 30.6 g/dL (31-35); MEAN CORPUSCULAR VOLUME 91.3 fL (81-99); MONOCYTES # (AUTO) 0.9 (0.2-0.8); MONOCYTES % 6.8 % (4.4-11.3); NEUTROPHILS # (AUTO) 10.3 (2.1-6.9); NEUTROPHILS % 78.8 % (38.7-80.0); PLATELET COUNT 226 x10e3/uL (140-360); RED BLOOD COUNT 3.69 x10e6/uL (3.6-5.1); RED CELL DISTRIBUTION WIDTH 16.6 % (11.7-14.4)
[2018-11-10 06:28] LABS: ANION GAP 14.5 mmol/L (8-16); CALCIUM 9.2 mg/dL (8.4-10.2); CREATININE, SERUM 1.06 mg/dL (0.57-1.11); POTASSIUM 3.5 mmol/L (3.5-5.1)
--- NOTE | 2018-11-10 06:52 | NUR ---
RECEIVED PATIENT RESTING IN RECLINER, NO ACUTE DISTRESS NOTED. CALL LIGHT WITHIN REACH. BED IN THE LOWEST POSITION.
[2018-11-10] MEDS: IPRATROPIUM BROMIDE 0.02% 2.5 ML NEB INH SCH ×4 (07:00→20:11)
[2018-11-10] MEDS: BUDESONIDE/FORMOTEROL 160/4.5MCG INHALER INH SCH ×2 (07:21→19:00)
[2018-11-10] MEDS: TIOTROPIUM 18 MCG INH POWDER INH SCH (07:21)
[2018-11-10] MEDS: AMLODIPINE BESYLATE 5 MG TAB PO SCH (08:29)
[2018-11-10] MEDS: NEBIVOLOL 10 MG TAB PO SCH ×2 (08:29→16:16)
[2018-11-10] MEDS: AZITHROMYCIN 500MG/NS 250 ML 250 ML IV SCH (08:29)
[2018-11-10] MEDS: LOSARTAN POTASSIUM 25 MG TAB PO SCH ×2 (08:29→16:17)
[2018-11-10] MEDS: METHYLPREDNISOLONE SOD SUCC 40 MG/ML VIAL 1ML IV SCH (08:29)
[2018-11-10] MEDS: TICAGRELOR 90 MG TABLET PO SCH ×2 (08:29→16:16)
[2018-11-10] MEDS: ASPIRIN 81 MG ENTERIC COATED PO SCH (08:29)
[2018-11-10] MEDS: FUROSEMIDE 40 MG TAB PO SCH ×2 (08:29→16:17)
--- NOTE | 2018-11-10 11:20 | NUR ---
PER DR. NAKIA WEIR TO DC SPUTUM CULTURE SINCE PATIENT IS NOT BEING ABLE TO PRODUCE SPUTUM.
--- NOTE | 2018-11-10 12:51 | Progress Note ---
DATE: 11/10/2018 Medicine Progress Note SUBJECTIVE: The patient states she is feeling a little bit better, but has still significant amount of coughing and has decreased breath sounds bilaterally in the lower bases. She is otherwise eager to go home. She is already on home O2. OBJECTIVE: VITAL SIGNS: Temperature 96.8, pulse 81, respiratory rate is 20, blood pressure 132/70, and pulse ox 94% on 2 L nasal cannula. GENERAL: Not in acute distress. Alert and oriented x3. Cooperative on examination. HEENT: Head is normocephalic and atraumatic. Eyes; pupils are equal, round, and reactive to light bilaterally. Extraocular movements are intact bilaterally. Throat, no evidence of erythema or exudates in the posterior pharynx. Has poor dentition. NECK: Supple. Good range of motion. PULMONARY: Decreased breath sounds in bilateral lower bases, has some mild fine crackles with expiratory wheezing appreciated. CARDIOVASCULAR: Positive S1, S2. No murmurs, rubs, or gallops appreciated. ABDOMEN: Soft, nondistended, and nontender to palpation. Bowel sounds present. MUSCULOSKELETAL: Strength is 5/5 throughout. No evidence of any muscle deficits on examination. No weakness appreciated. NEUROLOGICAL: Cranial nerves II through XII grossly intact. No evidence of any neurological deficits on exam. SKIN: Intact. Warm to touch. Good cap refill. PSYCHIATRIC: Normal affect and mood. EXTREMITIES: No edema. Good range of motion throughout. LAB FINDINGS: Showed white count of 13, hemoglobin 10.3, hematocrit 34, and platelets of 226. Coagulations, none. Chemistry; sodium 145, potassium 3.5, chloride 102, bicarb 32, anion gap of 14, BUN 24, creatinine 1.06. Microbiology and blood and urine cultures were negative. IMAGING STUDIES: V/Q scan shows very low probability of pulmonary embolism. CT chest was performed, shows right middle lobe nodular consolidative opacities associated with opacity likely represent pneumonia in acute setting. She does have some left-sided solid nodules that needs to be evaluated as an outpatient in several weeks. IMPRESSION: 1. Chronic obstructive pulmonary disease exacerbation. 2. Multifocal community-acquired pneumonia. 3. Hypertension. 4. Atypical chest pain. PLAN: At this time, V/Q scan was negative. CT chest shows multifocal pneumonia with some pulmonary nodularity, which needs to follow up as an outpatient which I discussed with her. She verbalized understanding. Continue with steroids, neb treatments, and antibiotics. She is improving on a daily basis and she looks much better than yesterday. She does have home O2 already. Continue with Lovenox for DVT prophylaxis. Labs reviewed and stable. Get a.m. labs. The patient will likely be in an additional day to monitor closely. Pulmonary is following. MD JENNIFER Chan/FLEXL /[id number]
[2018-11-10] MEDS: NICOTINE 21 MG/EA PATCH TOP SCH (14:26)
[2018-11-10] MEDS: ENOXAPARIN SOD INJ 40 MG/0.4 ML SYR SC SCH (16:17)
--- NOTE | 2018-11-10 18:43 | NUR ---
REPORT GIVEN TO ONCOMING NURSE, PATIENT IS RESTING IN BED. RESPIRATIONS EVEN AND UNLABORED, NO ACUTE DISTRESS NOTED. CALL LIGHT WITHIN REACH. BED IN THE LOWEST POSITION.
--- NOTE | 2018-11-10 18:45 | NUR ---
patient received awake, alert, lying quietly in bed. no c/o pain noted. respirations even and unlabored. 02/2l/nc in use. pm assessment complete. noted at the bedside. patient/ instructed to call for assistance when needed.
[2018-11-10] MEDS: ATORVASTATIN 40 MG TAB PO SCH (20:11)
[2018-11-11] VITALS: BP 158/66
[2018-11-11] MEDS: CEFTRIAXONE SOD 1 GM/NS 50 ML 50 ML IV SCH (00:58)
[2018-11-11 04:00] VITALS: BP_SYST 107; BP_SYST 149; BP_DIAS 70; BP_DIAS 71
[2018-11-11] MEDS: BUDESONIDE/FORMOTEROL 160/4.5MCG INHALER INH SCH (06:58)
[2018-11-11] MEDS: IPRATROPIUM BROMIDE 0.02% 2.5 ML NEB INH SCH ×2 (06:58→10:26)
[2018-11-11] MEDS: TIOTROPIUM 18 MCG INH POWDER INH SCH (06:58)
[2018-11-11] MEDS: ALBUTEROL SULF 0.083% NEB SOLN 3 ML NEB NEB SCH ×2 (06:58→10:26)
--- NOTE | 2018-11-11 07:30 | NUR ---
PT SITTING ON SOFA WITH AT THE SIDE. NO S/S OF DISTRESS NOTED. O2 RUNNING AT 2 L/MIN VIA NC.
[2018-11-11 08:00] VITALS: BP 143/59
[2018-11-11] MEDS: ASPIRIN 81 MG ENTERIC COATED PO SCH (08:24)
[2018-11-11] MEDS: AZITHROMYCIN 500MG/NS 250 ML 250 ML IV SCH (08:24)
[2018-11-11] MEDS: NEBIVOLOL 10 MG TAB PO SCH (08:25)
[2018-11-11] MEDS: TICAGRELOR 90 MG TABLET PO SCH (08:25)
[2018-11-11] MEDS: AMLODIPINE BESYLATE 5 MG TAB PO SCH (08:26)
[2018-11-11] MEDS: LOSARTAN POTASSIUM 25 MG TAB PO SCH (08:26)
[2018-11-11] MEDS: FUROSEMIDE 40 MG TAB PO SCH (08:26)
[2018-11-11] MEDS ORDERED: PREDNISONE 20 MG TAB PO SCH (09:00)
[2018-11-11 09:04] LABS: BASOPHILS % 0.1 % (0.0-1.0); EOSINOPHILS # (AUTO) 0.1 (0.0-0.4); EOSINOPHILS % 0.8 % (0.0-6.0); HEMATOCRIT 35.3 % (34.2-44.1); LYMPHOCYTES # (AUTO) 2.6 (1.0-3.2); LYMPHOCYTES % 20.5 % (18.0-39.1); MEAN CORPUSCULAR HEMOGLOBIN 27.9 pg (28-32); MEAN CORPUSCULAR HGB CONC 31.2 g/dL (31-35); MEAN CORPUSCULAR VOLUME 89.6 fL (81-99); MONOCYTES # (AUTO) 0.8 (0.2-0.8); NEUTROPHILS # (AUTO) 8.9 (2.1-6.9); NEUTROPHILS % 71.8 % (38.7-80.0); PLATELET COUNT 242 x10e3/uL (140-360); RED BLOOD COUNT 3.94 x10e6/uL (3.6-5.1); RED CELL DISTRIBUTION WIDTH 16.4 % (11.7-14.4)
[2018-11-11 09:36] LABS: ANION GAP 14.2 mmol/L (8-16); CALCIUM 9.3 mg/dL (8.4-10.2); CREATININE, SERUM 0.96 mg/dL (0.57-1.11); POTASSIUM 3.2 mmol/L (3.5-5.1)
[2018-11-11] MEDS ORDERED: LEVAQUIN500 MG PO (10:09)
[2018-11-11] MEDS ORDERED: PREDNISONE20 MG PO (10:10)
[2018-11-11] MEDS ORDERED: TESSALON PERLE100 MG PO (10:11)
[2018-11-11] MEDS ORDERED: ONDANSETRON HCL 4 MG ORAL DISINTEGRATING TAB PO PRN (10:30)
[2018-11-11] MEDS ORDERED: POTASSIUM CHLORIDE 20 MEQ TAB CR PO STA (10:35)
--- NOTE | 2018-11-11 11:00 | NUR ---
PT HAS BEEN DISCHARGED HOME. IV ON RIGHT AC HAS BEEN DISCONTINUED. NO COMPLICATIONS TO IV SITE. NO S/S OF DISTRESS. TAKEN DOWNSTAIRS BY TECH WHERE WILL PICK HER UP.
--- NOTE | 2018-11-12 07:13 | Discharge Summary ---
FINAL DISCHARGE DIAGNOSES: 1. Chronic obstructive pulmonary disease exacerbation. 2. Multifocal community-acquired pneumonia. 3. Hypertension. 4. Atypical chest pain. CONSULTANTS: Cardiology and Pulmonary. PHYSICAL EXAMINATION: VITAL SIGNS: Temperature is 97.8, pulse 60, respiratory rate is 20, blood pressure is 143/59, and pulse ox is 97% on 2 L nasal cannula. LAB FINDINGS: Show white count 4.4, hemoglobin 11, hematocrit is 35, platelets of 242. Coagulation; PT 14, INR 1.1, PTT 45. Chemistry; sodium 143, potassium is 3.3, chloride 98, bicarb 33, BUN is 20, creatinine is 0.96, glucose 93, calcium 9.3. We will replace potassium as well. Urinalysis negative. Urine culture negative. Blood cultures negative. IMAGING STUDIES: Chest x-ray on admission 11/06/2018 showed patchy and opacities in the lower lungs setting. The V/Q scan showed low probability of PE. CT chest shows right middle lobe setting. Small right pleural effusion with generalized pneumonia in the right lower lobe. She will need repeat CT to see if there is any resolution of this particular opacity. This is discussed with the patient at bedside and she verbalized understanding. Carotid ultrasound Doppler showed to be within normal range, negative for any stenosis. acute findings seen. HOSPITAL COURSE: This is a 68-year-old female with known history of COPD, on home O2, who comes into the ED with complaints of cough, congestion, and shortness of breath. While here, the patient had imaging studies of the V/Q scan, which was negative. CT chest with IV contrast shows multifocal pneumonia with some pulmonary nodularity. Pulmonary was consulted. The patient maintained on steroid neb treatments and antibiotics, while here in the hospital stay. The patient was advised to follow up as an outpatient in [address] imaging to see resolution of these multifocal pneumonias for further evaluation. She was also advised to follow up with Pulmonary as well as an outpatient. She also complained of chest pain, had negative cardiac enzymes, in which Cardiology was consulted. EKG showed no acute findings. No cardiac alarms on telemetry. 2D echo showed an EF of 50%. The patient was cleared for discharge by Cardiology standpoint well. On the day of discharge, the patient was cleared for discharge by both Cardiology and Pulmonary. The patient was back to normal baseline, breathing well with no other issues. On the day of discharge, vital signs stable, labs being stable. The patient seen and evaluated, examined thoroughly on the day of discharge. No other complaints. The patient verbalized understanding and agreed with plan of care to follow up appointment as an outpatient with primary care physician in 1 week and laboratory immunologist and adaptive physical education specialist in 2 weeks' time. The patient was advised to follow up as an outpatient with repeat imaging to see if pulmonary consolidation has improved and she will follow up with the adaptive physical education specialist in relation to that. MEDICATIONS: See med reconciliation form including Levaquin 500 mg one tab p.o. daily x7 days, prednisone 40 mg daily x5 days, and Tessalon Perles. DISPOSITION: Home. CONDITION: Stable. DIET: Heart healthy. In the event of any worsening symptoms, the patient was advised to come back to the ED for further evaluation. Discharge summary took greater than 35 minutes. MD JENNIFER Chan/JULIETH /[id number]
== END 2018-11-11 11:04 | disposition home or self-care (01) | DRG 190 ==
LOC: ER 11:31 → ERHOLD 13:56 → IMCU 17:43 → MED/SURG3 11-07 21:44
PROVIDERS: ADMIT Internal Medicine; ATTEND Internal Medicine
DX: J44.0 Chronic obstructive pulmonary disease with (acute) lower respiratory infection (principal); J15.9 Unspecified bacterial pneumonia; J96.22 Acute and chronic respiratory failure with hypercapnia; I13.0 Hypertensive heart and chronic kidney disease with heart failure and stage 1 through stage 4 chronic kidney disease, or unspecified chronic kidney disease; I50.32 Chronic diastolic (congestive) heart failure; J44.1 Chronic obstructive pulmonary disease with (acute) exacerbation; R07.89 Other chest pain; I25.10 Atherosclerotic heart disease of native coronary artery without angina pectoris; Z95.5 Presence of coronary angioplasty implant and graft; I73.9 Peripheral vascular disease, unspecified; F17.210 Nicotine dependence, cigarettes, uncomplicated; Z82.49 Family history of ischemic heart disease and other diseases of the circulatory system; E78.5 Hyperlipidemia, unspecified; I25.2 Old myocardial infarction; R09.1 Pleurisy; N18.9 Chronic kidney disease, unspecified; Z95.820 Peripheral vascular angioplasty status with implants and grafts; R01.1 Cardiac murmur, unspecified; R09.02 Hypoxemia
CPT/HCPCS: 36415; 36600; 71045; 71046; 71250; 78582; 80048; 80053; 81001; 82550; 82553; 82805; 83735; 83880; 84145; 84484; 85007; 85025; 85027; 85610; 85730; 87040; 87086; 93005; 93306; 93880; 94640; 94664; 97139; 99284; A9540; A9558; J0456; J0696; J1650; J2270; J2920; J2930; J7050; J7512